=== PATIENT | female | born 1950 | race African-American/Black ===

== ENCOUNTER → 2017-08-01 | Outpatient (CLI) | payer MEDICARE, MEDICAID ==
[~2017-08-01] MED LIST: CINA60 PO; HYDR-3511 PO; REN800 PO; [UNRECOGNIZED DRUG - OTHER] PO
== END | disposition home or self-care (01) ==
LOC: MRI 09:25
PROVIDERS: ATTEND Internal Medicine Nephrology
DX: M51.16 Intervertebral disc disorders with radiculopathy, lumbar region (principal); M48.061 Spinal stenosis, lumbar region without neurogenic claudication
CPT/HCPCS: 72148

== ENCOUNTER 2018-06-24 14:55 | Emergency (ER) | payer MEDICARE, MEDICAID ==
[~2018-06-24] VITALS: Ht 157.5 cm; Wt 80.0 kg
[2018-06-24] MEDS ORDERED: ONDANSETRON 4MG ODT PO ONE (18:15)
[2018-06-24] MEDS ORDERED: MORPHINE SULFATE 10 MG/ML CPJ SUBCUT ONE (18:15)
[2018-06-24 22:08] VITALS: BP 136/64
== END 2018-06-24 22:05 | disposition home or self-care (01) ==
LOC: ER 14:55
DX: M48.54XA Collapsed vertebra, not elsewhere classified, thoracic region, initial encounter for fracture (principal); K56.7 Ileus, unspecified; G89.29 Other chronic pain; I12.0 Hypertensive chronic kidney disease with stage 5 chronic kidney disease or end stage renal disease; N18.6 End stage renal disease; Z99.2 Dependence on renal dialysis; Z98.84 Bariatric surgery status
CPT/HCPCS: 74176; 96372; 99284; J2270; Q0162

== ENCOUNTER 2018-08-26 18:30 | Emergency (ER) | payer MEDICARE, MEDICAID ==
[~2018-08-26] VITALS: Ht 160 cm; Wt 70.0 kg
[2018-08-26] MEDS ORDERED: MORPHINE SULFATE 4 MG/ML CPJ (NOT FOR IM USE) IV STA (22:33)
[2018-08-26] MEDS ORDERED: ONDANSETRON HCL 4MG/2ML INJ IV STA (22:33)
[2018-08-26 23:26] LABS: BASOPHILS % 1.4 % (0.0-2.0); EOSINOPHILS % 5.1 % (0.0-5.0); HEMATOCRIT. 32.6 % (36.0-48.0); HEMOGLOBIN. 10.7 g/dL (12.0-16.0); MEAN CORPUSCULAR HEMOGLOBIN 29.1 pg (28.0-32.0); MEAN CORPUSCULAR VOLUME 88.6 fL (81.0-99.0); MEAN PLATELET VOLUME 7.1 fl (7.4-10.4); NEUTROPHILS % 61.5 % (40.0-76.0); PLATELET 160 x1000/uL (130-400); RED BLOOD CELL COUNT 3.68 mill/uL (4.2-5.4); RED CELL DISTRIBUTION WIDTH 18.1 % (11.6-14.6)
[2018-08-26 23:31] LABS: CHLORIDE 89 mEq/L (98-107)
[2018-08-26 23:35] LABS: INR 1.1; PARTIAL THROMBOPLASTIN TIME 30.8 sec (23.4-31.0); PROTHROMBIN TIME 10.6 sec (9.1-11.1)
[2018-08-27 00:54] VITALS: BP 124/53
== END 2018-08-27 01:41 | disposition home or self-care (01) ==
LOC: ER 18:30
DX: M54.5 Low back pain (principal); N18.6 End stage renal disease; Z99.2 Dependence on renal dialysis; Z98.890 Other specified postprocedural states; Z79.899 Other long term (current) drug therapy; W06.XXXA Fall from bed, initial encounter; Y93.89 Activity, other specified; Y92.89 Other specified places as the place of occurrence of the external cause; Y99.8 Other external cause status
CPT/HCPCS: 36415; 71045; 72100; 80053; 85025; 85610; 85730; 93005; 96374; 96375; 99284; J2270; J2405

== ENCOUNTER 2018-08-29 14:19 | Inpatient (IN) | payer MEDICARE, MEDICAID ==
[~2018-08-29] VITALS: Ht 160 cm; Wt 74.1 kg
[2018-08-29] MEDS ORDERED: MORPHINE SULFATE 4 MG/ML CPJ (NOT FOR IM USE) IV STA (14:35)
[2018-08-29 15:39] LABS: BASOPHILS % 0.8 % (0.0-2.0); EOSINOPHILS % 6.5 % (0.0-5.0); HEMATOCRIT. 32.6 % (36.0-48.0); HEMOGLOBIN. 10.7 g/dL (12.0-16.0); MEAN CORPUSCULAR HEMOGLOBIN 29.3 pg (28.0-32.0); MEAN CORPUSCULAR VOLUME 89.2 fL (81.0-99.0); MEAN PLATELET VOLUME 7.7 fl (7.4-10.4); MONOCYTES % 9.9 % (2.0-8.0); NEUTROPHILS % 69.8 % (40.0-76.0); PLATELET 186 x1000/uL (130-400); RED BLOOD CELL COUNT 3.65 mill/uL (4.2-5.4); RED CELL DISTRIBUTION WIDTH 18.2 % (11.6-14.6)
[2018-08-29 15:44] LABS: CHLORIDE 87 mEq/L (98-107)
[2018-08-29 15:45] LABS: PROTHROMBIN TIME 10.1 sec (9.1-11.1)
[2018-08-29] MEDS ORDERED: ALBUTEROL (0.083%) 2.5MG/3ML NEB HHN SCH (16:30)
[2018-08-29] MEDS ORDERED: INSULIN REGULAR (HUMULIN R) 300UNITS/3ML IV ONE (16:30)
[2018-08-29] MEDS ORDERED: DEXTROSE 50% WATER 50ML SYRINGE IV ONE (16:30)
[2018-08-29] MEDS ORDERED: SODIUM BICARBONATE 8.4% 1 MEQ/ML 50ML SYR IV ONE (16:30)
[2018-08-29] MEDS ORDERED: ACETAMINOPHEN 325MG TABLET PO PRN (22:30)
[2018-08-29] MEDS ORDERED: ONDANSETRON HCL 4MG/2ML INJ IV PRN (22:30)
[2018-08-29] MEDS ORDERED: IPRATROPIUM/ALBUTEROL 0.5-3(2.5)MG/3ML NEB INH PRN (22:30)
[2018-08-29] MEDS ORDERED: MAGNESIUM/ALUMINUM HYDROXIDE/SIMETHICONE 30ML UDC PO PRN (22:30)
[2018-08-29] MEDS ORDERED: LORAZEPAM 2MG/ML CPJ IV PRN (22:30)
[2018-08-29] MEDS ORDERED: DOCUSATE SODIUM 100MG CAPSULE PO PRN (22:30)
[2018-08-29] MEDS ORDERED: MORPHINE SULFATE 4 MG/ML CPJ (NOT FOR IM USE) IV PRN (22:30)
[2018-08-29] MEDS ORDERED: CLONIDINE 0.1MG TABLET PO PRN (22:30)
[2018-08-29] MEDS ORDERED: NA PHOS,M-B/NA PHOS,DI-BA ENEMA 118ML PR PRN (22:30)
[2018-08-30] VITALS (7 sets, daily range): BP systolic 114–148; BP diastolic 39–69
[2018-08-30 08:34] LABS: EOSINOPHILS % 3.1 % (0.0-5.0); HEMATOCRIT. 28.8 % (36.0-48.0); HEMOGLOBIN. 9.4 g/dL (12.0-16.0); LYMPHOCYTES % 10.8 % (20.0-50.0); MEAN CORPUSCULAR HEMOGLOBIN 28.8 pg (28.0-32.0); MEAN CORPUSCULAR VOLUME 88.3 fL (81.0-99.0); MEAN PLATELET VOLUME 7.6 fl (7.4-10.4); MONOCYTES % 10.8 % (2.0-8.0); NEUTROPHILS % 74.3 % (40.0-76.0); PLATELET 173 x1000/uL (130-400); RED BLOOD CELL COUNT 3.26 mill/uL (4.2-5.4); RED CELL DISTRIBUTION WIDTH 18.2 % (11.6-14.6)
[2018-08-30 09:04] LABS: CHLORIDE 89 mEq/L (98-107)
[2018-08-30 09:16] LABS: HDL CHOLESTEROL 73 mg/dL (40-59); LDL CHOLESTEROL 102 mg/dL (5-100)
[2018-08-30 09:17] LABS: T4 FREE 0.65 ng/dL (0.76-1.46)
[2018-08-30] MEDS: ENOXAPARIN 30MG/0.3ML SYR SUBCUT SCH (12:08)
[2018-08-30] MEDS: ASPIRIN 81MG EC TABLET PO SCH (12:09)
[2018-08-30] MEDS: HYDROCODONE/ACETAMINOPHEN 10/325MG TABLET PO PRN (12:09)
[2018-08-30] MEDS ORDERED: NORT25CA MT (12:18)
[2018-08-30] MEDS ORDERED: NORCO PO (12:18)
[2018-08-30] MEDS ORDERED: CYCL5TAB PO (12:18)
[2018-08-30] MEDS ORDERED: DEXTROSE 50% WATER 50ML SYRINGE IV SCH (13:45)
[2018-08-30] MEDS ORDERED: INSULIN REGULAR (HUMULIN R) 300UNITS/3ML IV SCH (13:45)
[2018-08-30] MEDS ORDERED: SODIUM BICARBONATE 8.4% 1 MEQ/ML 50ML SYR IV SCH (13:45)
[2018-08-30] MEDS ORDERED: CALCIUM CHLORIDE 1,000 MG in DEXT 5% WATER 100 ML IV SCH (15:00)
[2018-08-30] MEDS ORDERED: DEXTROSE 50% WATER 50ML SYRINGE IV PRN (15:45)
[2018-08-30 17:06] LABS: CREATINE KINASE MB FRACTION 1.1 ng/mL (0.5-3.6); T4 FREE 0.59 ng/dL (0.76-1.46)
[2018-08-30] MEDS: BLOOD SUGAR DIAGNOSTIC STRIP TEST SCH ×2 (17:20→20:14)
[2018-08-31] VITALS: BP 140/67
[2018-08-31 00:06] LABS: CREATINE KINASE 45 IU/L (26-192)
[2018-08-31 00:07] LABS: CREATINE KINASE MB FRACTION < 1.0 ng/mL (0.5-3.6)
[2018-08-31 04:41] VITALS: BP 123/56
[2018-08-31 06:35] LABS: HEMATOCRIT. 27.1 % (36.0-48.0); MEAN CORPUSCULAR HEMOGLOBIN 29.1 pg (28.0-32.0); MEAN CORPUSCULAR VOLUME 87.4 fL (81.0-99.0); MEAN PLATELET VOLUME 7.7 fl (7.4-10.4); PLATELET 173 x1000/uL (130-400); RED CELL DISTRIBUTION WIDTH 17.8 % (11.6-14.6)
[2018-08-31] MEDS: BLOOD SUGAR DIAGNOSTIC STRIP TEST SCH ×3 (06:35→17:20)
[2018-08-31 07:02] LABS: CHLORIDE 93 mEq/L (98-107)
[2018-08-31 07:21] LABS: CREATINE KINASE 45 IU/L (26-192)
[2018-08-31 07:23] LABS: CREATINE KINASE MB FRACTION < 1.0 ng/mL (0.5-3.6)
[2018-08-31 08:00] VITALS: BP 110/48
[2018-08-31] MEDS: HYDROCODONE/ACETAMINOPHEN 10/325MG TABLET PO PRN ×3 (08:19→18:56)
[2018-08-31] MEDS: ASPIRIN 81MG EC TABLET PO SCH (09:35)
[2018-08-31] MEDS: FOLIC ACID/VITAMIN B COMP W-C TABLET PO SCH (09:35)
[2018-08-31] MEDS: CALCIUM ACETATE 667MG CAPSULE PO SCH ×3 (09:35→18:47)
[2018-08-31] MEDS: ENOXAPARIN 30MG/0.3ML SYR SUBCUT SCH (09:36)
[2018-08-31 10:44] LABS: PLATELET ESTIMATE NORMAL
[2018-08-31 12:00] VITALS: BP 135/60
[2018-08-31 16:00] VITALS: BP 132/72
[2018-08-31 20:00] VITALS: BP 115/52
[2018-08-31] MEDS ORDERED: EPOETIN ALFA 10000UNITS/ML VIAL SUBCUT SCH (21:00)
[2018-09-01] VITALS: BP 113/56
[2018-09-01 04:00] VITALS: BP 118/50
[2018-09-01 06:14] LABS: HEMATOCRIT. 26.7 % (36.0-48.0); HEMOGLOBIN. 8.9 g/dL (12.0-16.0); MEAN CORPUSCULAR HEMOGLOBIN 29.8 pg (28.0-32.0); MEAN CORPUSCULAR VOLUME 89.3 fL (81.0-99.0); MEAN PLATELET VOLUME 7.8 fl (7.4-10.4); PLATELET 170 x1000/uL (130-400); RED BLOOD CELL COUNT 2.99 mill/uL (4.2-5.4)
[2018-09-01] MEDS: BLOOD SUGAR DIAGNOSTIC STRIP TEST SCH ×2 (07:20→12:20)
[2018-09-01 08:00] VITALS: BP 118/48
[2018-09-01 08:42] VITALS: BP 118/48
[2018-09-01] MEDS: HYDROCODONE/ACETAMINOPHEN 10/325MG TABLET PO PRN (09:28)
[2018-09-01] MEDS: ENOXAPARIN 30MG/0.3ML SYR SUBCUT SCH (09:28)
[2018-09-01] MEDS: ASPIRIN 81MG EC TABLET PO SCH (09:28)
[2018-09-01] MEDS: FOLIC ACID/VITAMIN B COMP W-C TABLET PO SCH (09:28)
[2018-09-01] MEDS: CALCIUM ACETATE 667MG CAPSULE PO SCH ×2 (09:29→12:51)
[2018-09-01 12:00] VITALS: BP 134/62
[2018-09-01 12:43] VITALS: BP 134/62
[2018-09-01 13:11] LABS: PLATELET ESTIMATE NORMAL
== END 2018-09-01 15:00 | disposition home health service (06) | DRG 640 ==
LOC: ER 14:19 → 6WST 17:11 → EDBEDREQ 17:21 → EDBEDREQTM 17:21 → ENRESERV 21:20
PROVIDERS: ADMIT Internal Medicine; ATTEND Internal Medicine
PROC: 5A1D70Z Performance of Urinary Filtration, Intermittent, Less than 6 Hours Per Day (ICD-10-PCS; principal; 2018-08-30)
PROC: 5A1D70Z Performance of Urinary Filtration, Intermittent, Less than 6 Hours Per Day (ICD-10-PCS; 2018-08-31)
DX: E87.5 Hyperkalemia (principal); L89.153 Pressure ulcer of sacral region, stage 3; J96.00 Acute respiratory failure, unspecified whether with hypoxia or hypercapnia; N18.6 End stage renal disease; E46 Unspecified protein-calorie malnutrition; I12.0 Hypertensive chronic kidney disease with stage 5 chronic kidney disease or end stage renal disease; M48.061 Spinal stenosis, lumbar region without neurogenic claudication; E87.2 Acidosis; E87.1 Hypo-osmolality and hyponatremia; E87.70 Fluid overload, unspecified; D64.9 Anemia, unspecified; E78.5 Hyperlipidemia, unspecified; M47.896 Other spondylosis, lumbar region; D72.819 Decreased white blood cell count, unspecified; M46.96 Unspecified inflammatory spondylopathy, lumbar region; M46.90 Unspecified inflammatory spondylopathy, site unspecified; E16.2 Hypoglycemia, unspecified; N25.0 Renal osteodystrophy; W18.30XA Fall on same level, unspecified, initial encounter; Y93.89 Activity, other specified; Y92.89 Other specified places as the place of occurrence of the external cause; Y99.8 Other external cause status; Z99.2 Dependence on renal dialysis; Z98.84 Bariatric surgery status; Z90.710 Acquired absence of both cervix and uterus; Z86.718 Personal history of other venous thrombosis and embolism; Z68.28 Body mass index [BMI] 28.0-28.9, adult; Z79.899 Other long term (current) drug therapy
CPT/HCPCS: 36415; 71045; 72100; 72131; 80048; 80061; 82550; 82553; 82962; 83036; 83880; 84134; 84439; 84443; 84484; 85379; 93005; 93306; 93970; 96374; 96375; 97162; 99284; 99285; J0885; J1650; J1815; J2270; J2405; J3490; J7050; J7060

== ENCOUNTER 2018-09-12 03:21 | Inpatient (IN) | payer MEDICARE, MEDICAID ==
[~2018-09-12] VITALS: Ht 165.1 cm; Wt 67.6 kg
[~2018-09-12 03:21] MED LIST changes: -CINA60 PO; +CYCL5TAB PO; -HYDR-3511 PO; +NORCO PO; +NORT25CA MT; -REN800 PO; -[UNRECOGNIZED DRUG - OTHER] PO
[2018-09-12] MEDS ORDERED: MORPHINE SULFATE 4 MG/ML CPJ (NOT FOR IM USE) IV STA (06:18)
[2018-09-12 06:32] LABS: BASOPHILS % 1.1 % (0.0-2.0); EOSINOPHILS % 6.1 % (0.0-5.0); HEMATOCRIT. 28.2 % (36.0-48.0); HEMOGLOBIN. 9.4 g/dL (12.0-16.0); LYMPHOCYTES % 17.4 % (20.0-50.0); MEAN CORPUSCULAR HEMOGLOBIN 29.4 pg (28.0-32.0); MEAN CORPUSCULAR VOLUME 88.5 fL (81.0-99.0); MONOCYTES % 9.7 % (2.0-8.0); NEUTROPHILS % 65.7 % (40.0-76.0); PLATELET 201 x1000/uL (130-400); RED BLOOD CELL COUNT 3.19 mill/uL (4.2-5.4); RED CELL DISTRIBUTION WIDTH 16.8 % (11.6-14.6)
[2018-09-12 06:37] LABS: CHLORIDE 88 mEq/L (98-107)
[2018-09-12 06:39] LABS: PROTHROMBIN TIME 10.4 sec (9.6-11.0)
[2018-09-12 18:41] VITALS: BP 151/107
[2018-09-12 19:11] VITALS: BP 151/107
[2018-09-12] MEDS ORDERED: SENN8.6T71 MT (19:20)
[2018-09-12 20:00] VITALS: BP 120/59
[2018-09-12] MEDS ORDERED: ACETAMINOPHEN 325MG TABLET PO PRN (21:15)
[2018-09-12] MEDS ORDERED: DIPHENHYDRAMINE 50MG/ML VIAL IV PRN (21:15)
[2018-09-12] MEDS ORDERED: GUAIFENESIN 200MG/10ML SUGAR FREE UDC PO PRN (21:15)
[2018-09-12] MEDS ORDERED: CLONIDINE 0.1MG TABLET PO PRN (21:15)
[2018-09-12] MEDS ORDERED: MAGNESIUM/ALUMINUM HYDROXIDE/SIMETHICONE 30ML UDC PO PRN (21:15)
[2018-09-12] MEDS ORDERED: HYDRALAZINE 20MG/ML VIAL IV PRN (21:15)
[2018-09-12] MEDS ORDERED: ONDANSETRON HCL 4MG/2ML INJ IV PRN (21:15)
[2018-09-12] MEDS ORDERED: IPRATROPIUM/ALBUTEROL 0.5-3(2.5)MG/3ML NEB INH PRN (21:15)
[2018-09-12] MEDS ORDERED: LORAZEPAM 2MG/ML CPJ IV PRN (21:15)
[2018-09-12] MEDS ORDERED: HYDROCODONE/ACETAMINOPHEN 10/325MG TABLET PO PRN (21:17)
[2018-09-12] MEDS: HYDROMORPHONE HCL/PF 2MG/ML CPJ IV PRN (22:17)
[2018-09-12] MEDS: SODIUM CHLORIDE 0.9% INJ 3ML FLUSH IVF SCH (22:18)
[2018-09-13] VITALS (7 sets, daily range): BP systolic 112–150; BP diastolic 47–95
[2018-09-13 02:04] LABS: CREATINE KINASE 49 IU/L (26-192)
[2018-09-13 02:05] LABS: CREATINE KINASE MB FRACTION < 1.0 ng/mL (0.5-3.6)
[2018-09-13 06:16] LABS: BASOPHILS % 1.1 % (0.0-2.0); HEMOGLOBIN. 9.9 g/dL (12.0-16.0); LYMPHOCYTES % 12.9 % (20.0-50.0); MEAN CORPUSCULAR HEMOGLOBIN 29.3 pg (28.0-32.0); MEAN CORPUSCULAR VOLUME 88.7 fL (81.0-99.0); MEAN PLATELET VOLUME 7.6 fl (7.4-10.4); MONOCYTES % 9.1 % (2.0-8.0); NEUTROPHILS % 69.9 % (40.0-76.0); PLATELET 198 x1000/uL (130-400); RED BLOOD CELL COUNT 3.38 mill/uL (4.2-5.4); RED CELL DISTRIBUTION WIDTH 16.7 % (11.6-14.6)
[2018-09-13 06:41] LABS: CHLORIDE 87 mEq/L (98-107)
[2018-09-13] MEDS: SODIUM CHLORIDE 0.9% INJ 3ML FLUSH IVF SCH ×3 (06:50→22:38)
[2018-09-13 06:55] LABS: CREATINE KINASE 47 IU/L (26-192)
[2018-09-13 06:58] LABS: CREATINE KINASE MB FRACTION < 1.0 ng/mL (0.5-3.6)
[2018-09-13] MEDS: ASPIRIN 81MG EC TABLET PO SCH (10:22)
[2018-09-13] MEDS: ENOXAPARIN 30MG/0.3ML SYR SUBCUT SCH (10:23)
[2018-09-13] MEDS: HYDROMORPHONE HCL/PF 2MG/ML CPJ IV PRN ×2 (11:35→23:42)
[2018-09-13] MEDS ORDERED: HYDR-4009 PO (19:35)
[2018-09-14 04:00] VITALS: BP 113/47
[2018-09-14 05:59] LABS: BASOPHILS % 1.2 % (0.0-2.0); EOSINOPHILS % 7.7 % (0.0-5.0); HEMATOCRIT. 26.5 % (36.0-48.0); HEMOGLOBIN. 8.9 g/dL (12.0-16.0); MEAN CORPUSCULAR HEMOGLOBIN 29.5 pg (28.0-32.0); MEAN CORPUSCULAR VOLUME 88.4 fL (81.0-99.0); MEAN PLATELET VOLUME 7.5 fl (7.4-10.4); NEUTROPHILS % 58.1 % (40.0-76.0); PLATELET 190 x1000/uL (130-400); RED CELL DISTRIBUTION WIDTH 16.8 % (11.6-14.6)
[2018-09-14] MEDS: SODIUM CHLORIDE 0.9% INJ 3ML FLUSH IVF SCH ×2 (07:10→20:55)
[2018-09-14 08:00] VITALS: BP 98/40
[2018-09-14] MEDS: ASPIRIN 81MG EC TABLET PO SCH (09:15)
[2018-09-14] MEDS: ENOXAPARIN 30MG/0.3ML SYR SUBCUT SCH (09:15)
[2018-09-14 10:05] LABS: TOTAL IRON BINDING CAPACITY 123 ug/dL (250-450)
[2018-09-14 12:08] VITALS: BP 122/78
[2018-09-14] MEDS: DOCUSATE SODIUM 100MG CAPSULE PO PRN (12:54)
[2018-09-14 16:00] VITALS: BP 105/51
[2018-09-14 20:00] VITALS: BP 114/58
[2018-09-14] MEDS: EPOETIN ALFA 10000UNITS/ML VIAL SUBCUT SCH (20:54)
[2018-09-15] VITALS: BP 136/57
[2018-09-15 04:00] VITALS: BP 117/85
[2018-09-15] MEDS: SODIUM CHLORIDE 0.9% INJ 3ML FLUSH IVF SCH ×3 (06:03→22:29)
[2018-09-15 07:44] LABS: BASOPHILS % 1.4 % (0.0-2.0); EOSINOPHILS % 8.7 % (0.0-5.0); HEMATOCRIT. 28.9 % (36.0-48.0); HEMOGLOBIN. 9.2 g/dL (12.0-16.0); LYMPHOCYTES % 22.3 % (20.0-50.0); MEAN CORPUSCULAR HEMOGLOBIN 28.7 pg (28.0-32.0); MEAN CORPUSCULAR VOLUME 89.8 fL (81.0-99.0); MEAN PLATELET VOLUME 7.5 fl (7.4-10.4); NEUTROPHILS % 54.6 % (40.0-76.0); PLATELET 197 x1000/uL (130-400); RED BLOOD CELL COUNT 3.22 mill/uL (4.2-5.4); RED CELL DISTRIBUTION WIDTH 17.1 % (11.6-14.6)
[2018-09-15 08:00] VITALS: BP 130/51
[2018-09-15] MEDS: ASPIRIN 81MG EC TABLET PO SCH (09:06)
[2018-09-15] MEDS: ENOXAPARIN 30MG/0.3ML SYR SUBCUT SCH (09:07)
[2018-09-15] MEDS: HYDROMORPHONE HCL/PF 2MG/ML CPJ IV PRN ×2 (09:38→22:26)
[2018-09-15 12:41] VITALS: BP 133/63
[2018-09-15 15:36] VITALS: BP 122/53
[2018-09-15 20:00] VITALS: BP 130/55
[2018-09-16] VITALS: BP 128/59
[2018-09-16 04:00] VITALS: BP 121/51
[2018-09-16 05:42] LABS: EOSINOPHILS % 11.7 % (0.0-5.0); HEMATOCRIT. 29.9 % (36.0-48.0); HEMOGLOBIN. 9.8 g/dL (12.0-16.0); LYMPHOCYTES % 32.2 % (20.0-50.0); MEAN CORPUSCULAR HEMOGLOBIN 29.3 pg (28.0-32.0); MEAN CORPUSCULAR VOLUME 89.4 fL (81.0-99.0); MEAN PLATELET VOLUME 7.6 fl (7.4-10.4); MONOCYTES % 12.6 % (2.0-8.0); NEUTROPHILS % 42.5 % (40.0-76.0); PLATELET 197 x1000/uL (130-400); RED BLOOD CELL COUNT 3.35 mill/uL (4.2-5.4); RED CELL DISTRIBUTION WIDTH 16.9 % (11.6-14.6)
[2018-09-16] MEDS: SODIUM CHLORIDE 0.9% INJ 3ML FLUSH IVF SCH ×3 (06:05→21:54)
[2018-09-16 08:00] VITALS: BP 125/56
[2018-09-16] MEDS: ENOXAPARIN 30MG/0.3ML SYR SUBCUT SCH (09:29)
[2018-09-16] MEDS: ASPIRIN 81MG EC TABLET PO SCH (09:29)
[2018-09-16] MEDS: HYDROMORPHONE HCL/PF 2MG/ML CPJ IV PRN ×2 (09:33→21:29)
[2018-09-16 12:00] VITALS: BP 134/49
[2018-09-16 16:00] VITALS: BP 146/61
[2018-09-16 20:00] VITALS: BP 129/52
[2018-09-17] VITALS: BP 128/54
[2018-09-17 04:00] VITALS: BP 130/56
[2018-09-17] MEDS: SODIUM CHLORIDE 0.9% INJ 3ML FLUSH IVF SCH ×3 (04:34→21:00)
[2018-09-17 06:57] LABS: BASOPHILS % 1.2 % (0.0-2.0); EOSINOPHILS % 10.7 % (0.0-5.0); HEMATOCRIT. 27.3 % (36.0-48.0); HEMOGLOBIN. 9.1 g/dL (12.0-16.0); LYMPHOCYTES % 23.8 % (20.0-50.0); MEAN CORPUSCULAR HEMOGLOBIN 29.3 pg (28.0-32.0); MEAN CORPUSCULAR VOLUME 88.3 fL (81.0-99.0); MEAN PLATELET VOLUME 7.3 fl (7.4-10.4); MONOCYTES % 11.8 % (2.0-8.0); NEUTROPHILS % 52.5 % (40.0-76.0); PLATELET 232 x1000/uL (130-400); RED BLOOD CELL COUNT 3.09 mill/uL (4.2-5.4); RED CELL DISTRIBUTION WIDTH 16.7 % (11.6-14.6)
[2018-09-17 08:00] VITALS: BP 135/59
[2018-09-17] MEDS: DOCUSATE SODIUM 100MG CAPSULE PO PRN ×2 (09:52→21:36)
[2018-09-17] MEDS: ASPIRIN 81MG EC TABLET PO SCH (09:52)
[2018-09-17] MEDS: HYDROMORPHONE HCL/PF 2MG/ML CPJ IV PRN ×2 (09:53→21:07)
[2018-09-17] MEDS: ENOXAPARIN 30MG/0.3ML SYR SUBCUT SCH (09:54)
[2018-09-17 12:00] VITALS: BP 135/63
[2018-09-17 16:00] VITALS: BP 143/66
[2018-09-17 20:00] VITALS: BP 137/66
[2018-09-17] MEDS: EPOETIN ALFA 10000UNITS/ML VIAL SUBCUT SCH (21:15)
[2018-09-18] VITALS: BP 130/58
[2018-09-18 04:00] VITALS: BP 119/52
[2018-09-18] MEDS: SODIUM CHLORIDE 0.9% INJ 3ML FLUSH IVF SCH ×3 (06:47→22:08)
[2018-09-18 08:00] VITALS: BP 143/58
[2018-09-18] MEDS: ASPIRIN 81MG EC TABLET PO SCH (09:13)
[2018-09-18] MEDS: ENOXAPARIN 30MG/0.3ML SYR SUBCUT SCH (09:13)
[2018-09-18] MEDS: HYDROMORPHONE HCL/PF 2MG/ML CPJ IV PRN ×3 (10:19→22:18)
[2018-09-18 12:00] VITALS: BP 129/43
[2018-09-18 16:00] VITALS: BP 128/67
[2018-09-18 20:00] VITALS: BP 139/61
[2018-09-19] VITALS: BP 124/58
[2018-09-19 04:00] VITALS: BP 125/52
[2018-09-19] MEDS: SODIUM CHLORIDE 0.9% INJ 3ML FLUSH IVF SCH (05:41)
[2018-09-19 07:03] LABS: HEMATOCRIT. 30.9 % (36.0-48.0); HEMOGLOBIN. 9.9 g/dL (12.0-16.0); MEAN CORPUSCULAR HEMOGLOBIN 28.2 pg (28.0-32.0); MEAN CORPUSCULAR VOLUME 88.2 fL (81.0-99.0); MEAN PLATELET VOLUME 7.7 fl (7.4-10.4); PLATELET 209 x1000/uL (130-400); RED CELL DISTRIBUTION WIDTH 16.7 % (11.6-14.6)
[2018-09-19 08:00] VITALS: BP 127/52
[2018-09-19] MEDS: ASPIRIN 81MG EC TABLET PO SCH (09:00)
[2018-09-19] MEDS: ENOXAPARIN 30MG/0.3ML SYR SUBCUT SCH (09:00)
[2018-09-19] MEDS: HYDROMORPHONE HCL/PF 2MG/ML CPJ IV PRN (09:14)
[2018-09-19 09:22] LABS: PLATELET ESTIMATE NORMAL
[2018-09-19 12:00] VITALS: BP 141/68
[2018-09-19 13:15] VITALS: BP 141/68
[2018-09-19 16:00] VITALS: BP 151/61
[2018-09-19] MEDS: DOCUSATE SODIUM 100MG CAPSULE PO PRN (16:21)
== END 2018-09-19 17:43 | disposition home or self-care (01) | DRG 542 ==
LOC: ER 03:21 → 7WST 08:13 → EDBEDREQ 08:16 → EDBEDREQTM 08:16 → ENRESERV 14:54
PROVIDERS: ADMIT Internal Medicine; ATTEND Internal Medicine
PROC: 5A1D70Z Performance of Urinary Filtration, Intermittent, Less than 6 Hours Per Day (ICD-10-PCS; principal; 2018-09-13)
PROC: 5A1D70Z Performance of Urinary Filtration, Intermittent, Less than 6 Hours Per Day (ICD-10-PCS; 2018-09-17)
PROC: 5A1D70Z Performance of Urinary Filtration, Intermittent, Less than 6 Hours Per Day (ICD-10-PCS; 2018-09-19)
DX: M48.54XA Collapsed vertebra, not elsewhere classified, thoracic region, initial encounter for fracture (principal); L89.153 Pressure ulcer of sacral region, stage 3; N18.6 End stage renal disease; E87.1 Hypo-osmolality and hyponatremia; I12.0 Hypertensive chronic kidney disease with stage 5 chronic kidney disease or end stage renal disease; M48.061 Spinal stenosis, lumbar region without neurogenic claudication; G89.29 Other chronic pain; Z99.2 Dependence on renal dialysis; D64.9 Anemia, unspecified; E11.22 Type 2 diabetes mellitus with diabetic chronic kidney disease; R29.6 Repeated falls; E87.5 Hyperkalemia; M48.02 Spinal stenosis, cervical region; M47.9 Spondylosis, unspecified; N25.0 Renal osteodystrophy; Z91.81 History of falling; Z98.84 Bariatric surgery status; Z98.891 History of uterine scar from previous surgery; Z79.84 Long term (current) use of oral hypoglycemic drugs
CPT/HCPCS: 36415; 72128; 72131; 72141; 72146; 72148; 80048; 82550; 82553; 83540; 83550; 84134; 84484; 93005; 96374; 97162; 99285; A6261; J0885; J1170; J1650; J2060; J2270

== ENCOUNTER 2019-02-12 18:57 | Emergency (ER) | payer MEDICARE, MEDICAID ==
[~2019-02-12] VITALS: Ht 160 cm; Wt 63.0 kg
[~2019-02-12 18:57] MED LIST changes: -NORCO PO; +SENN8.6T71 MT
[2019-02-12] MEDS ORDERED: MORPHINE SULFATE 4 MG/ML CPJ (NOT FOR IM USE) IV STA (20:06)
[2019-02-12] MEDS ORDERED: SODIUM CHLORIDE 0.9% 1,000 ML IV ONE (20:06)
[2019-02-12] MEDS ORDERED: ONDANSETRON HCL 4MG/2ML INJ IV STA (20:06)
[2019-02-12] MEDS ORDERED: FAMOTIDINE 20MG/2ML VIAL IV ONE (20:15)
[2019-02-12 20:27] LABS: BASOPHILS % 0.7 % (0.0-2.0); EOSINOPHILS % 3.8 % (0.0-5.0); HEMATOCRIT. 27.1 % (36.0-48.0); HEMOGLOBIN. 8.9 g/dL (12.0-16.0); LYMPHOCYTES % 8.4 % (20.0-50.0); MEAN CORPUSCULAR HEMOGLOBIN 29.8 pg (28.0-32.0); MEAN CORPUSCULAR VOLUME 90.7 fL (81.0-99.0); MEAN PLATELET VOLUME 8.2 fl (7.4-10.4); MONOCYTES % 7.6 % (2.0-8.0); NEUTROPHILS % 79.5 % (40.0-76.0); PLATELET 132 x1000/uL (130-400); RED BLOOD CELL COUNT 2.98 mill/uL (4.2-5.4); RED CELL DISTRIBUTION WIDTH 20.6 % (11.6-14.6)
[2019-02-12 20:31] LABS: CHLORIDE 96 mEq/L (98-107)
[2019-02-12 20:35] LABS: ETHANOL BLOOD < 10 mg/dL
[2019-02-12] MEDS ORDERED: SORBITOL 70% SOLN 30ML PO ONE (22:00)
[2019-02-12] MEDS ORDERED: NA PHOS,M-B/NA PHOS,DI-BA ENEMA 118ML PR ONE (22:00)
[2019-02-13 01:25] VITALS: BP 119/84
== END 2019-02-13 02:55 | disposition home or self-care (01) ==
LOC: ER 18:57 → CANBEDREQ 02-13 03:52
DX: K59.00 Constipation, unspecified (principal); R10.31 Right lower quadrant pain; R10.32 Left lower quadrant pain; Z90.49 Acquired absence of other specified parts of digestive tract
CPT/HCPCS: 36415; 71045; 74176; 80053; 80320; 83690; 83880; 84484; 85025; 93005; 96374; 96375; 99284; J2270; J2405; J3490; J7030; G0480

== ENCOUNTER 2019-03-20 15:20 | Inpatient (IN) | payer MEDICARE, MEDICAID ==
[~2019-03-20] VITALS: Ht 160 cm; Wt 59.0 kg
[2019-03-20 17:00] VITALS: BP 132/76
[2019-03-20] MEDS ORDERED: SODIUM CHLORIDE 0.45% 1,000 ML IV SCH (17:25)
[2019-03-20] MEDS ORDERED: DOCUSATE SODIUM 100MG CAPSULE PO PRN (17:30)
[2019-03-20] MEDS ORDERED: GUAIFENESIN 200MG/10ML SUGAR FREE UDC PO PRN (17:30)
[2019-03-20] MEDS ORDERED: ACETAMINOPHEN 325MG TABLET PO PRN (17:30)
[2019-03-20] MEDS ORDERED: IPRATROPIUM/ALBUTEROL 0.5-3(2.5)MG/3ML NEB HHN PRN (17:30)
[2019-03-20] MEDS ORDERED: DIPHENHYDRAMINE 50MG/ML VIAL IV PRN (17:30)
[2019-03-20] MEDS ORDERED: LORAZEPAM 2MG/ML CPJ IV PRN (17:30)
[2019-03-20] MEDS ORDERED: MAGNESIUM/ALUMINUM HYDROXIDE/SIMETHICONE 30ML UDC PO PRN (17:30)
[2019-03-20] MEDS ORDERED: ONDANSETRON HCL 4MG/2ML INJ IV PRN (17:30)
[2019-03-20] MEDS: HYDROCODONE/ACETAMINOPHEN 10/325MG TABLET PO PRN (19:37)
[2019-03-20 20:00] VITALS: BP 157/67
[2019-03-20] MEDS ORDERED: OXYC-100 PO (20:19)
[2019-03-20] MEDS: SODIUM CHLORIDE 0.9% INJ 3ML FLUSH IVF SCH (22:00)
[2019-03-21] MEDS: HYDROCODONE/ACETAMINOPHEN 10/325MG TABLET PO PRN (00:28)
[2019-03-21] MEDS: HYDROMORPHONE HCL/PF 2MG/ML CPJ IV PRN ×6 (01:06→20:17)
[2019-03-21 04:00] VITALS: BP 133/60
[2019-03-21] MEDS: SODIUM CHLORIDE 0.9% INJ 3ML FLUSH IVF SCH (05:13)
[2019-03-21 07:47] LABS: HEMATOCRIT. 32.1 % (36.0-48.0); HEMOGLOBIN. 10.3 g/dL (12.0-16.0); MEAN CORPUSCULAR HEMOGLOBIN 30.2 pg (28.0-32.0); MEAN CORPUSCULAR VOLUME 93.8 fL (81.0-99.0); MEAN PLATELET VOLUME 8.7 fl (7.4-10.4); PLATELET 110 x1000/uL (130-400); RED BLOOD CELL COUNT 3.42 mill/uL (4.2-5.4); RED CELL DISTRIBUTION WIDTH 16.8 % (11.6-14.6)
[2019-03-21 08:00] VITALS: BP 152/77
[2019-03-21] MEDS: ASPIRIN 81MG EC TABLET PO SCH (08:45)
[2019-03-21 09:05] LABS: CHLORIDE 97 mEq/L (98-107)
[2019-03-21 10:13] LABS: PLATELET ESTIMATE DECREASED
[2019-03-21 12:00] VITALS: BP 142/68
[2019-03-21] MEDS ORDERED: DIATR MEGLU/DIATRIZOATE SOLN 30ML PO SCH (14:45)
[2019-03-21 15:56] VITALS: BP 156/66
[2019-03-21 15:56] LABS: PROTHROMBIN TIME 10.3 sec (9.6-11.0)
[2019-03-21] MEDS: ENOXAPARIN 30MG/0.3ML SYR SUBCUT SCH (16:55)
[2019-03-21 20:00] VITALS: BP 146/65
[2019-03-21] MEDS: OMEPRAZOLE 20MG CAPSULE EXTENDED RELEASE PO SCH (20:24)
[2019-03-21] MEDS: LACTULOSE 20G/30ML UDC PO SCH (20:24)
[2019-03-21] MEDS: DOCUSATE SODIUM 250MG CAPSULE PO SCH (20:24)
[2019-03-21] MEDS: SENNOSIDES 8.6MG TABLET PO SCH (20:24)
[2019-03-22] VITALS: BP 152/72
[2019-03-22] MEDS: HYDROMORPHONE HCL/PF 2MG/ML CPJ IV PRN ×4 (00:31→21:48)
[2019-03-22 04:00] VITALS: BP 142/63
[2019-03-22] MEDS: OMEPRAZOLE 20MG CAPSULE EXTENDED RELEASE PO SCH ×2 (06:43→21:34)
[2019-03-22] MEDS: SODIUM CHLORIDE 0.9% INJ 3ML FLUSH IVF SCH (06:50)
[2019-03-22 08:03] LABS: BASOPHILS % 1.3 % (0.0-2.0); HEMATOCRIT. 31.5 % (36.0-48.0); HEMOGLOBIN. 10.2 g/dL (12.0-16.0); MEAN CORPUSCULAR HEMOGLOBIN 29.9 pg (28.0-32.0); MEAN CORPUSCULAR VOLUME 92.4 fL (81.0-99.0); MEAN PLATELET VOLUME 8.6 fl (7.4-10.4); MONOCYTES % 9.4 % (2.0-8.0); NEUTROPHILS % 47.3 % (40.0-76.0); PLATELET 140 x1000/uL (130-400); RED BLOOD CELL COUNT 3.41 mill/uL (4.2-5.4); RED CELL DISTRIBUTION WIDTH 16.5 % (11.6-14.6)
[2019-03-22] MEDS: ASPIRIN 81MG EC TABLET PO SCH (10:31)
[2019-03-22] MEDS: DOCUSATE SODIUM 250MG CAPSULE PO SCH ×2 (10:31→17:22)
[2019-03-22 16:00] VITALS: BP 144/62
[2019-03-22] MEDS: ENOXAPARIN 30MG/0.3ML SYR SUBCUT SCH (17:22)
[2019-03-22 20:00] VITALS: BP 142/69
[2019-03-22] MEDS: SENNOSIDES 8.6MG TABLET PO SCH (21:34)
[2019-03-22] MEDS: LACTULOSE 20G/30ML UDC PO SCH (21:35)
[2019-03-22] MEDS: CLONIDINE 0.1MG TABLET PO PRN (23:31)
[2019-03-23] VITALS: BP 183/74
[2019-03-23] MEDS: HYDROMORPHONE HCL/PF 2MG/ML CPJ IV PRN ×5 (02:14→20:29)
[2019-03-23] MEDS: SODIUM CHLORIDE 0.9% INJ 3ML FLUSH IVF SCH ×2 (02:27→06:09)
[2019-03-23] MEDS: HYDROCODONE/ACETAMINOPHEN 10/325MG TABLET PO PRN (03:40)
[2019-03-23 04:00] VITALS: BP 134/65
[2019-03-23 07:48] LABS: HEMATOCRIT. 29.8 % (36.0-48.0); HEMOGLOBIN. 9.7 g/dL (12.0-16.0); MEAN CORPUSCULAR HEMOGLOBIN 30.2 pg (28.0-32.0); MEAN CORPUSCULAR VOLUME 92.5 fL (81.0-99.0); PLATELET 122 x1000/uL (130-400); RED BLOOD CELL COUNT 3.22 mill/uL (4.2-5.4); RED CELL DISTRIBUTION WIDTH 16.1 % (11.6-14.6)
[2019-03-23] MEDS: OMEPRAZOLE 20MG CAPSULE EXTENDED RELEASE PO SCH ×2 (09:47→20:28)
[2019-03-23] MEDS: ASCORBIC ACID 250 MG TABLET PO SCH (09:47)
[2019-03-23] MEDS: DOCUSATE SODIUM 250MG CAPSULE PO SCH ×2 (09:47→16:37)
[2019-03-23] MEDS: ASPIRIN 81MG EC TABLET PO SCH (09:47)
[2019-03-23] MEDS: ZINC SULFATE 220 MG ( 50 ) CAPSULE PO SCH (09:48)
[2019-03-23] MEDS ORDERED: LIDOCAINE HCL 1% 20ML VIAL (Pyxis) INJ ONE (11:03)
[2019-03-23 11:45] LABS: PLATELET ESTIMATE NORMAL
[2019-03-23 12:00] VITALS: BP 134/59
[2019-03-23 16:00] VITALS: BP 150/70
[2019-03-23] MEDS: ENOXAPARIN 30MG/0.3ML SYR SUBCUT SCH (16:00)
[2019-03-23 20:00] VITALS: BP 191/77
[2019-03-23] MEDS: LACTULOSE 20G/30ML UDC PO SCH (20:27)
[2019-03-23] MEDS: SENNOSIDES 8.6MG TABLET PO SCH (20:28)
[2019-03-24] VITALS: BP 107/62
[2019-03-24] MEDS: HYDROMORPHONE HCL/PF 2MG/ML CPJ IV PRN ×4 (02:19→21:50)
[2019-03-24 04:00] VITALS: BP 130/39
[2019-03-24] MEDS: SODIUM CHLORIDE 0.9% INJ 3ML FLUSH IVF SCH ×3 (06:05→21:43)
[2019-03-24 06:07] LABS: HEMATOCRIT. 27.9 % (36.0-48.0); HEMOGLOBIN. 9.2 g/dL (12.0-16.0); MEAN CORPUSCULAR HEMOGLOBIN 30.2 pg (28.0-32.0); MEAN CORPUSCULAR VOLUME 91.7 fL (81.0-99.0); MEAN PLATELET VOLUME 8.7 fl (7.4-10.4); PLATELET 107 x1000/uL (130-400); RED BLOOD CELL COUNT 3.05 mill/uL (4.2-5.4); RED CELL DISTRIBUTION WIDTH 16.3 % (11.6-14.6)
[2019-03-24] MEDS: OMEPRAZOLE 20MG CAPSULE EXTENDED RELEASE PO SCH ×2 (06:20→21:43)
[2019-03-24 08:00] VITALS: BP 120/43
[2019-03-24] MEDS: ASPIRIN 81MG EC TABLET PO SCH (09:00)
[2019-03-24] MEDS: ASCORBIC ACID 250 MG TABLET PO SCH (09:55)
[2019-03-24] MEDS: DOCUSATE SODIUM 250MG CAPSULE PO SCH ×2 (09:55→17:40)
[2019-03-24] MEDS: ZINC SULFATE 220 MG ( 50 ) CAPSULE PO SCH (09:55)
[2019-03-24 10:00] LABS: PLATELET ESTIMATE NORMAL
[2019-03-24] MEDS ORDERED: BISACODYL 10MG SUPP PR NR (11:45)
[2019-03-24 12:00] VITALS: BP 143/50
[2019-03-24] MEDS ORDERED: DIATR MEGLU/DIATRIZOATE SOLN 30ML PO SCH (13:30)
[2019-03-24 16:00] VITALS: BP 134/34
[2019-03-24] MEDS: ENOXAPARIN 30MG/0.3ML SYR SUBCUT SCH (16:00)
[2019-03-24 20:00] VITALS: BP 185/57
[2019-03-24] MEDS: CLONIDINE 0.1MG TABLET PO PRN (20:15)
[2019-03-24] MEDS ORDERED: EPOETIN ALFA 10000UNITS/ML VIAL SUBCUT SCH (21:00)
[2019-03-24] MEDS: LACTULOSE 20G/30ML UDC PO SCH (21:43)
[2019-03-24] MEDS: SENNOSIDES 8.6MG TABLET PO SCH (21:43)
[2019-03-25] VITALS: BP_SYST 125; BP_SYST 185; BP_DIAS 57; BP_DIAS 67
[2019-03-25 04:00] VITALS: BP 138/50
[2019-03-25] MEDS: HYDROMORPHONE HCL/PF 2MG/ML CPJ IV PRN ×3 (06:09→23:48)
[2019-03-25 06:10] LABS: HIV SCREEN 4G Non Reactive (Non Reactive)
[2019-03-25] MEDS: OMEPRAZOLE 20MG CAPSULE EXTENDED RELEASE PO SCH ×2 (06:16→20:34)
[2019-03-25] MEDS: SODIUM CHLORIDE 0.9% INJ 3ML FLUSH IVF SCH ×3 (06:46→22:57)
[2019-03-25 07:20] LABS: HEMOGLOBIN. 9.8 g/dL (12.0-16.0); MEAN CORPUSCULAR HEMOGLOBIN 30.2 pg (28.0-32.0); MEAN CORPUSCULAR VOLUME 92.2 fL (81.0-99.0); MEAN PLATELET VOLUME 8.8 fl (7.4-10.4); PLATELET 126 x1000/uL (130-400); RED BLOOD CELL COUNT 3.26 mill/uL (4.2-5.4); RED CELL DISTRIBUTION WIDTH 16.1 % (11.6-14.6)
[2019-03-25 08:00] VITALS: BP 179/40
[2019-03-25 08:07] LABS: IMMUNOGLOBULIN A 318 mg/dL (87-352); IMMUNOGLOBULIN G 926 mg/dL (700-1600); IMMUNOGLOBULIN M 131 mg/dL (26-217)
[2019-03-25] MEDS: ASCORBIC ACID 250 MG TABLET PO SCH (09:01)
[2019-03-25] MEDS: ASPIRIN 81MG EC TABLET PO SCH (09:01)
[2019-03-25] MEDS: ZINC SULFATE 220 MG ( 50 ) CAPSULE PO SCH (09:05)
[2019-03-25] MEDS: DOCUSATE SODIUM 250MG CAPSULE PO SCH ×2 (09:05→17:36)
[2019-03-25 09:08] LABS: ALK PHOS TOTAL 517 IU/L (39-117)
[2019-03-25 10:56] LABS: PLATELET ESTIMATE NORMAL
[2019-03-25 12:00] VITALS: BP 123/57
[2019-03-25] MEDS: CLONIDINE 0.1MG TABLET PO PRN (15:40)
[2019-03-25 16:00] VITALS: BP 178/53
[2019-03-25] MEDS: ENOXAPARIN 30MG/0.3ML SYR SUBCUT SCH (16:07)
[2019-03-25 20:00] VITALS: BP 177/88
[2019-03-25] MEDS: SENNOSIDES 8.6MG TABLET PO SCH (20:34)
[2019-03-25] MEDS: LACTULOSE 20G/30ML UDC PO SCH (20:34)
[2019-03-25] MEDS ORDERED: HYDROCODONE/ACETAMINOPHEN 10/325MG TABLET PO PRN (23:00)
[2019-03-26] VITALS: BP 169/46
[2019-03-26] MEDS: CLONIDINE 0.1MG TABLET PO PRN ×2 (00:07→06:31)
[2019-03-26] MEDS: HYDROMORPHONE HCL/PF 2MG/ML CPJ IV PRN ×4 (03:25→22:07)
[2019-03-26 04:00] VITALS: BP 186/59
[2019-03-26] MEDS: OMEPRAZOLE 20MG CAPSULE EXTENDED RELEASE PO SCH ×2 (06:29→22:03)
[2019-03-26] MEDS: SODIUM CHLORIDE 0.9% INJ 3ML FLUSH IVF SCH ×3 (06:29→22:08)
[2019-03-26 08:00] VITALS: BP 111/57
[2019-03-26] MEDS: ASPIRIN 81MG EC TABLET PO SCH (08:10)
[2019-03-26] MEDS: DOCUSATE SODIUM 250MG CAPSULE PO SCH ×2 (08:10→16:09)
[2019-03-26] MEDS: ASCORBIC ACID 250 MG TABLET PO SCH (08:10)
[2019-03-26] MEDS: ZINC SULFATE 220 MG ( 50 ) CAPSULE PO SCH (08:10)
[2019-03-26 10:24] LABS: HEMATOCRIT. 31.1 % (36.0-48.0); HEMOGLOBIN. 10.1 g/dL (12.0-16.0); MEAN CORPUSCULAR HEMOGLOBIN 29.9 pg (28.0-32.0); MEAN CORPUSCULAR VOLUME 92.3 fL (81.0-99.0); MEAN PLATELET VOLUME 8.8 fl (7.4-10.4); PLATELET 130 x1000/uL (130-400); RED BLOOD CELL COUNT 3.37 mill/uL (4.2-5.4); RED CELL DISTRIBUTION WIDTH 16.1 % (11.6-14.6)
[2019-03-26 13:35] LABS: PLATELET ESTIMATE NORMAL
[2019-03-26 16:00] VITALS: BP 117/52
[2019-03-26] MEDS: ENOXAPARIN 30MG/0.3ML SYR SUBCUT SCH (16:09)
[2019-03-26 20:00] VITALS: BP 123/48
[2019-03-26] MEDS: SENNOSIDES 8.6MG TABLET PO SCH (22:03)
[2019-03-26] MEDS: LACTULOSE 20G/30ML UDC PO SCH (22:03)
[2019-03-27] VITALS: BP 134/51
[2019-03-27] MEDS: HYDROMORPHONE HCL/PF 2MG/ML CPJ IV PRN ×2 (02:41→06:29)
[2019-03-27 04:00] VITALS: BP 147/58
[2019-03-27] MEDS: OMEPRAZOLE 20MG CAPSULE EXTENDED RELEASE PO SCH (06:28)
[2019-03-27] MEDS: SODIUM CHLORIDE 0.9% INJ 3ML FLUSH IVF SCH ×2 (06:28→14:00)
[2019-03-27 08:00] VITALS: BP 132/75
[2019-03-27] MEDS: DOCUSATE SODIUM 250MG CAPSULE PO SCH (08:06)
[2019-03-27] MEDS: ASPIRIN 81MG EC TABLET PO SCH (08:06)
[2019-03-27] MEDS: ZINC SULFATE 220 MG ( 50 ) CAPSULE PO SCH (08:06)
[2019-03-27] MEDS: ASCORBIC ACID 250 MG TABLET PO SCH (08:06)
[2019-03-27 12:00] VITALS: BP 128/57
[2019-03-27 12:21] VITALS: BP 132/75
[2019-03-27 13:06] LABS: ALK PHOS BONE FRACTION 92 % (14-68); ALK PHOS INTESTINAL FRACTION 0 % (0-18); ALK PHOS LIVER FRACTION 8 % (18-85)
== END 2019-03-27 14:16 | disposition home health service (06) | DRG 551 ==
LOC: 6EST 15:20
PROVIDERS: ADMIT Internal Medicine; ATTEND Internal Medicine
PROC: 5A1D70Z Performance of Urinary Filtration, Intermittent, Less than 6 Hours Per Day (ICD-10-PCS; 2019-03-21)
PROC: 02HV33Z Insertion of Infusion Device into Superior Vena Cava, Percutaneous Approach (ICD-10-PCS; 2019-03-23)
PROC: B5181ZA Fluoroscopy of Superior Vena Cava using Low Osmolar Contrast, Guidance (ICD-10-PCS; 2019-03-23)
PROC: B548ZZA Ultrasonography of Superior Vena Cava, Guidance (ICD-10-PCS; 2019-03-23)
PROC: 5A1D70Z Performance of Urinary Filtration, Intermittent, Less than 6 Hours Per Day (ICD-10-PCS; 2019-03-24)
PROC: 5A1D70Z Performance of Urinary Filtration, Intermittent, Less than 6 Hours Per Day (ICD-10-PCS; 2019-03-25)
PROC: 5A1D70Z Performance of Urinary Filtration, Intermittent, Less than 6 Hours Per Day (ICD-10-PCS; principal; 2019-03-27)
DX: M48.02 Spinal stenosis, cervical region (principal); N18.6 End stage renal disease; E44.0 Moderate protein-calorie malnutrition; D61.818 Other pancytopenia; E87.1 Hypo-osmolality and hyponatremia; I12.0 Hypertensive chronic kidney disease with stage 5 chronic kidney disease or end stage renal disease; N25.81 Secondary hyperparathyroidism of renal origin; M54.12 Radiculopathy, cervical region; E11.22 Type 2 diabetes mellitus with diabetic chronic kidney disease; M25.512 Pain in left shoulder; M48.061 Spinal stenosis, lumbar region without neurogenic claudication; D69.6 Thrombocytopenia, unspecified; M81.0 Age-related osteoporosis without current pathological fracture; N25.0 Renal osteodystrophy; G89.29 Other chronic pain; K59.00 Constipation, unspecified; D63.8 Anemia in other chronic diseases classified elsewhere; Z86.711 Personal history of pulmonary embolism; Z86.718 Personal history of other venous thrombosis and embolism; Z99.2 Dependence on renal dialysis; Z98.84 Bariatric surgery status; Z90.49 Acquired absence of other specified parts of digestive tract; Z68.23 Body mass index [BMI] 23.0-23.9, adult
CPT/HCPCS: 36415; 36573; 72141; 74176; 76700; 80048; 80076; 82270; 82607; 82728; 82746; 82784; 82977; 83540; 83550; 84075; 84080; 85044; 86334; 87389; 97162; C1725; J0885; J1170; J1650; J2060; J3490; Q9963

== ENCOUNTER 2019-06-16 09:38 | Inpatient (IN) | payer MEDICARE, MEDICAID ==
[~2019-06-16] VITALS: Ht 160 cm; Wt 64.0 kg
[~2019-06-16 09:38] MED LIST changes: +OXYC-100 PO
[2019-06-16] MEDS ORDERED: MORPHINE SULFATE 4 MG/ML CPJ (NOT FOR IM USE) IV STA (13:10)
[2019-06-16] MEDS ORDERED: ONDANSETRON HCL 4MG/2ML INJ IV STA (13:10)
[2019-06-16 14:02] LABS: BASOPHILS % 0.8 % (0.0-2.0); EOSINOPHILS % 3.7 % (0.0-5.0); HEMATOCRIT. 27.2 % (36.0-48.0); HEMOGLOBIN. 9.2 g/dL (12.0-16.0); LYMPHOCYTES % 16.1 % (20.0-50.0); MEAN CORPUSCULAR VOLUME 88.8 fL (81.0-99.0); MEAN PLATELET VOLUME 8.5 fl (7.4-10.4); MONOCYTES % 5.4 % (2.0-8.0); PLATELET 181 x1000/uL (130-400); RED BLOOD CELL COUNT 3.06 mill/uL (4.2-5.4); RED CELL DISTRIBUTION WIDTH 16.9 % (11.6-14.6)
[2019-06-16 14:04] LABS: CHLORIDE 95 mEq/L (98-107)
[2019-06-16] MEDS ORDERED: FUROSEMIDE 40MG/4ML VIAL IVP ONE (15:45)
[2019-06-16] MEDS ORDERED: GUAIFENESIN 200MG/10ML SUGAR FREE UDC PO PRN (17:45)
[2019-06-16] MEDS ORDERED: IPRATROPIUM/ALBUTEROL 0.5-3(2.5)MG/3ML NEB NEB PRN (17:45)
[2019-06-16] MEDS ORDERED: CLONIDINE 0.1MG TABLET PO PRN (17:45)
[2019-06-16] MEDS ORDERED: ONDANSETRON HCL 4MG/2ML INJ IV PRN (17:45)
[2019-06-16] MEDS ORDERED: DOCUSATE SODIUM 100MG CAPSULE PO PRN (17:45)
[2019-06-16] MEDS ORDERED: LORAZEPAM 2MG/ML CPJ IV PRN (17:45)
[2019-06-16] MEDS ORDERED: ACETAMINOPHEN 325MG TABLET PO PRN (17:45)
[2019-06-16] MEDS ORDERED: MAGNESIUM/ALUMINUM HYDROXIDE/SIMETHICONE 30ML UDC PO PRN (17:45)
[2019-06-16] MEDS ORDERED: ENOXAPARIN 40MG/0.4ML SYR SUBCUT SCH (17:45)
[2019-06-16] MEDS ORDERED: NA PHOS,M-B/NA PHOS,DI-BA ENEMA 118ML PR PRN (17:45)
[2019-06-16] MEDS: HYDROMORPHONE HCL/PF 2MG/ML CPJ IV PRN (19:29)
[2019-06-16] MEDS: DIPHENHYDRAMINE 50MG/ML VIAL IV PRN (19:29)
[2019-06-16 23:45] VITALS: BP 138/43
[2019-06-17] VITALS: BP 138/43
[2019-06-17] MEDS: DIPHENHYDRAMINE 50MG/ML VIAL IV PRN ×2 (00:16→23:57)
[2019-06-17] MEDS: HYDROMORPHONE HCL/PF 2MG/ML CPJ IV PRN ×5 (00:17→20:37)
[2019-06-17 04:00] VITALS: BP 151/49
[2019-06-17 08:00] VITALS: BP 108/54
[2019-06-17] MEDS: ENOXAPARIN 30MG/0.3ML SYR SUBCUT SCH (09:22)
[2019-06-17 10:06] LABS: BASOPHILS % 1.6 % (0.0-2.0); EOSINOPHILS % 7.4 % (0.0-5.0); HEMATOCRIT. 27.5 % (36.0-48.0); HEMOGLOBIN. 9.2 g/dL (12.0-16.0); LYMPHOCYTES % 17.8 % (20.0-50.0); MEAN CORPUSCULAR VOLUME 89.4 fL (81.0-99.0); MEAN PLATELET VOLUME 8.2 fl (7.4-10.4); MONOCYTES % 6.5 % (2.0-8.0); NEUTROPHILS % 66.7 % (40.0-76.0); PLATELET 187 x1000/uL (130-400); RED BLOOD CELL COUNT 3.08 mill/uL (4.2-5.4); RED CELL DISTRIBUTION WIDTH 17.1 % (11.6-14.6)
[2019-06-17 10:15] LABS: CHLORIDE 95 mEq/L (98-107)
[2019-06-17 10:25] LABS: LDL CHOLESTEROL 129 mg/dL (5-100)
[2019-06-17 10:27] LABS: T4 FREE 0.83 ng/dL (0.76-1.46)
[2019-06-17 10:28] LABS: HDL CHOLESTEROL 80 mg/dL (40-59)
[2019-06-17] MEDS: LOSARTAN POTASSIUM 25 MG TABLET PO SCH (11:30)
[2019-06-17 12:00] VITALS: BP_SYST 128; BP_SYST 132; BP_DIAS 53; BP_DIAS 86
[2019-06-17] MEDS ORDERED: INFLUENZA VIRUS VACCINE(AFLURIA) 0.5ML SYR IM ONE (12:00)
[2019-06-17 16:00] VITALS: BP 172/69
[2019-06-17 16:47] LABS: PROTHROMBIN TIME 10.4 sec (9.6-11.0)
[2019-06-17 20:00] VITALS: BP 140/33
[2019-06-17] MEDS: ATORVASTATIN CALCIUM 20MG TABLET PO SCH (20:37)
[2019-06-18] VITALS: BP 148/39
[2019-06-18 04:00] VITALS: BP 130/59
[2019-06-18] MEDS: HYDROMORPHONE HCL/PF 2MG/ML CPJ IV PRN ×3 (04:05→15:36)
[2019-06-18] MEDS: ENOXAPARIN 30MG/0.3ML SYR SUBCUT SCH (07:09)
[2019-06-18 07:37] LABS: BASOPHILS % 1.7 % (0.0-2.0); EOSINOPHILS % 7.6 % (0.0-5.0); HEMATOCRIT. 26.7 % (36.0-48.0); HEMOGLOBIN. 9.2 g/dL (12.0-16.0); LYMPHOCYTES % 15.7 % (20.0-50.0); MEAN CORPUSCULAR HEMOGLOBIN 30.2 pg (28.0-32.0); MEAN CORPUSCULAR VOLUME 87.9 fL (81.0-99.0); MEAN PLATELET VOLUME 8.2 fl (7.4-10.4); MONOCYTES % 7.9 % (2.0-8.0); NEUTROPHILS % 67.1 % (40.0-76.0); PLATELET 164 x1000/uL (130-400); RED BLOOD CELL COUNT 3.03 mill/uL (4.2-5.4); RED CELL DISTRIBUTION WIDTH 17.1 % (11.6-14.6)
[2019-06-18 08:00] VITALS: BP 153/60
[2019-06-18] MEDS: LOSARTAN POTASSIUM 25 MG TABLET PO SCH (08:06)
[2019-06-18 12:00] VITALS: BP 148/31
[2019-06-18 16:00] VITALS: BP 165/35
[2019-06-18] MEDS: DIPHENHYDRAMINE 50MG/ML VIAL IV PRN (16:31)
[2019-06-18 20:00] VITALS: BP 127/52
[2019-06-18] MEDS: ATORVASTATIN CALCIUM 20MG TABLET PO SCH (21:00)
[2019-06-19] VITALS (10 sets, daily range): BP systolic 91–157; BP diastolic 27–52
[2019-06-19] MEDS: HYDROMORPHONE HCL/PF 2MG/ML CPJ IV PRN ×4 (02:00→23:19)
[2019-06-19 06:38] LABS: BASOPHILS % 1.3 % (0.0-2.0); EOSINOPHILS % 10.1 % (0.0-5.0); HEMOGLOBIN. 8.4 g/dL (12.0-16.0); LYMPHOCYTES % 21.5 % (20.0-50.0); MEAN CORPUSCULAR HEMOGLOBIN 30.1 pg (28.0-32.0); MEAN CORPUSCULAR VOLUME 89.4 fL (81.0-99.0); MEAN PLATELET VOLUME 8.3 fl (7.4-10.4); MONOCYTES % 11.7 % (2.0-8.0); NEUTROPHILS % 55.4 % (40.0-76.0); PLATELET 161 x1000/uL (130-400); RED CELL DISTRIBUTION WIDTH 16.9 % (11.6-14.6)
[2019-06-19] MEDS: LOSARTAN POTASSIUM 25 MG TABLET PO SCH (09:00)
[2019-06-19] MEDS: ENOXAPARIN 30MG/0.3ML SYR SUBCUT SCH (09:00)
[2019-06-19] MEDS ORDERED: DIPHENHYDRAMINE 50MG/ML VIAL IV NR (10:45)
[2019-06-19] MEDS: ATORVASTATIN CALCIUM 20MG TABLET PO SCH (21:49)
[2019-06-19] MEDS: DIPHENHYDRAMINE 50MG/ML VIAL IV PRN (21:59)
[2019-06-20] VITALS: BP 149/40
[2019-06-20] MEDS ORDERED: LIDOCAINE HCL 4% CREAM 76GM TUBE TP PRN (00:30)
[2019-06-20] MEDS: HYDROMORPHONE HCL/PF 2MG/ML CPJ IV PRN ×3 (01:41→14:29)
[2019-06-20 04:00] VITALS: BP 111/58
[2019-06-20 08:00] VITALS: BP 147/60
[2019-06-20] MEDS: LOSARTAN POTASSIUM 25 MG TABLET PO SCH (08:23)
[2019-06-20] MEDS: ENOXAPARIN 30MG/0.3ML SYR SUBCUT SCH (08:24)
[2019-06-20 11:32] LABS: BASOPHILS % 1.3 % (0.0-2.0); EOSINOPHILS % 7.5 % (0.0-5.0); HEMATOCRIT. 33.5 % (36.0-48.0); HEMOGLOBIN. 11.4 g/dL (12.0-16.0); LYMPHOCYTES % 17.6 % (20.0-50.0); MEAN CORPUSCULAR HEMOGLOBIN 29.7 pg (28.0-32.0); MEAN CORPUSCULAR VOLUME 87.2 fL (81.0-99.0); MEAN PLATELET VOLUME 7.9 fl (7.4-10.4); MONOCYTES % 9.8 % (2.0-8.0); NEUTROPHILS % 63.8 % (40.0-76.0); PLATELET 160 x1000/uL (130-400); RED BLOOD CELL COUNT 3.84 mill/uL (4.2-5.4); RED CELL DISTRIBUTION WIDTH 16.7 % (11.6-14.6)
[2019-06-20 12:00] VITALS: BP 109/55
[2019-06-20] MEDS ORDERED: EPINEPHRINE 1:1000 1 MG/ML AMP ONE ×2 (13:12→17:49)
[2019-06-20] MEDS ORDERED: KETOROLAC 30MG/ML VIAL ONE (13:12)
[2019-06-20] MEDS ORDERED: ROPIVACAINE HCL 10MG/ML 20 ML VIAL EPI ONE ×2 (13:13→15:51)
[2019-06-20] MEDS ORDERED: VANCOMYCIN HCL 1 GM/VIAL ONE (13:13)
[2019-06-20] MEDS ORDERED: TRANEXAMIC ACID 1,000 MG in SODIUM CHLORIDE 0.9% 100 ML IV SCH (13:15)
[2019-06-20] MEDS ORDERED: LIDOCAINE HCL 1% 20ML VIAL (Pyxis) INJ ONE (13:23)
[2019-06-20] MEDS ORDERED: TRANEXAMIC ACID 1,000 MG/10 ML IV SCH (13:30)
[2019-06-20] MEDS ORDERED: MORPHINE SULFATE/PF 1MG/ML 10ML AMP ONE (15:40)
[2019-06-20] MEDS ORDERED: NORMAL SALINE 0.9% 10 ML SYR ONE (15:52)
[2019-06-20] MEDS ORDERED: TRANEXAMIC ACID 1,000 MG in SODIUM CHLORIDE 0.9% 100 ML IV NR (16:00)
[2019-06-20 16:29] VITALS: BP 144/34
[2019-06-20] MEDS ORDERED: DEXTROSE 50% WATER 50ML SYRINGE IV ONE (16:43)
[2019-06-20] MEDS ORDERED: CALCIUM CHLORIDE 1GM/10ML SYR IV ONE (17:09)
[2019-06-20] MEDS ORDERED: LIDOCAINE HCL/PF 1% 10 MG/ML 5ML VIAL ONE (17:11)
[2019-06-20] MEDS ORDERED: NEOSTIGMINE METHYLSULFATE 1MG/ML 10 ML VIAL ONE (17:11)
[2019-06-20] MEDS ORDERED: ROCURONIUM BROMIDE 10MG/ML VIAL 5ML IV ONE (17:11)
[2019-06-20] MEDS ORDERED: GLYCOPYRROLATE 0.2 MG/ML 2ML VIAL ONE (17:11)
[2019-06-20] MEDS ORDERED: SODIUM CHLORIDE 0.9% 10ML VIAL ONE (17:11)
[2019-06-20] MEDS ORDERED: PROPOFOL 200MG/20ML VIAL IV ONE (17:11)
[2019-06-20] MEDS ORDERED: FENTANYL CITRATE/PF 50MCG/ML 2ML VIAL ONE (17:11)
[2019-06-20] MEDS ORDERED: SUCCINYLCHOLINE CHLORIDE 200MG/10ML IV ONE (17:11)
[2019-06-20] MEDS ORDERED: MIDAZOLAM HCL 2 MG/2 ML VIAL ONE (17:11)
[2019-06-20] MEDS ORDERED: CEFAZOLIN SODIUM 1000MG/VIAL ONE (17:11)
[2019-06-20] MEDS ORDERED: EPHEDRINE SULFATE 50MG/ML VIAL ONE (17:12)
[2019-06-20] MEDS ORDERED: ETOMIDATE 2MG/ML 10ML VIAL IV ONE (17:12)
[2019-06-20] MEDS ORDERED: PHENYLEPHRINE HCL 10 MG/ML 1ML (IV VIAL) IV ONE (17:12)
[2019-06-20] MEDS ORDERED: ONDANSETRON HCL 4MG/2ML INJ ONE (17:12)
[2019-06-20] MEDS ORDERED: METOCLOPRAMIDE HCL 10MG/2ML VIAL ONE (17:12)
[2019-06-20 17:47] LABS: BASOPHILS % 1.1 % (0.0-2.0); EOSINOPHILS % 7.6 % (0.0-5.0); HEMOGLOBIN. 9.9 g/dL (12.0-16.0); LYMPHOCYTES % 18.3 % (20.0-50.0); MEAN CORPUSCULAR HEMOGLOBIN 29.8 pg (28.0-32.0); MEAN CORPUSCULAR VOLUME 87.1 fL (81.0-99.0); MONOCYTES % 10.3 % (2.0-8.0); NEUTROPHILS % 62.7 % (40.0-76.0); PLATELET 157 x1000/uL (130-400); RED BLOOD CELL COUNT 3.33 mill/uL (4.2-5.4); RED CELL DISTRIBUTION WIDTH 16.7 % (11.6-14.6)
[2019-06-20] MEDS ORDERED: SODIUM CHLORIDE 0.9% 1,000 ML IV ONE (20:01)
[2019-06-20] MEDS ORDERED: MORPHINE SULFATE 2 MG/ML CPJ (NOT FOR IM USE) IV PRN (20:15)
[2019-06-20] MEDS ORDERED: ONDANSETRON HCL 4MG/2ML INJ IV PRN (20:15)
[2019-06-20] MEDS ORDERED: HYDROMORPHONE HCL/PF 2MG/ML CPJ IV PRN (20:15)
[2019-06-20] MEDS: CEFAZOLIN 1000MG PREMIX 50 ML IV SCH (21:52)
[2019-06-20] MEDS: ATORVASTATIN CALCIUM 20MG TABLET PO SCH (21:52)
[2019-06-20 22:00] VITALS: BP 122/32
[2019-06-20] MEDS ORDERED: CEFAZOLIN SODIUM 1000MG/VIAL IV SCH (22:00)
[2019-06-21] VITALS: BP 135/27
[2019-06-21 04:00] VITALS: BP 130/25
[2019-06-21] MEDS: HYDROCODONE/ACETAMINOPHEN 5/325MG TABLET PO PRN ×2 (04:05→22:57)
[2019-06-21] MEDS: CEFAZOLIN 1000MG PREMIX 50 ML IV SCH ×2 (05:14→16:19)
[2019-06-21 07:04] LABS: EOSINOPHILS % 6.7 % (0.0-5.0); HEMATOCRIT. 24.8 % (36.0-48.0); HEMOGLOBIN. 8.4 g/dL (12.0-16.0); LYMPHOCYTES % 11.7 % (20.0-50.0); MEAN CORPUSCULAR HEMOGLOBIN 29.8 pg (28.0-32.0); MEAN CORPUSCULAR VOLUME 88.2 fL (81.0-99.0); MEAN PLATELET VOLUME 8.1 fl (7.4-10.4); MONOCYTES % 9.4 % (2.0-8.0); NEUTROPHILS % 71.2 % (40.0-76.0); PLATELET 128 x1000/uL (130-400); RED BLOOD CELL COUNT 2.81 mill/uL (4.2-5.4); RED CELL DISTRIBUTION WIDTH 16.4 % (11.6-14.6)
[2019-06-21 08:00] VITALS: BP 141/29
[2019-06-21] MEDS: LOSARTAN POTASSIUM 25 MG TABLET PO SCH (09:16)
[2019-06-21] MEDS: HYDROMORPHONE HCL/PF 2MG/ML CPJ IV PRN ×2 (09:19→14:32)
[2019-06-21] MEDS: AMLODIPINE 2.5MG TABLET PO SCH (09:22)
[2019-06-21 12:00] VITALS: BP 108/24
[2019-06-21 16:00] VITALS: BP 91/40
[2019-06-21 20:00] VITALS: BP 108/23
[2019-06-21] MEDS: ATORVASTATIN CALCIUM 20MG TABLET PO SCH (22:55)
[2019-06-22] VITALS: BP 109/20
[2019-06-22] MEDS: DIPHENHYDRAMINE 50MG/ML VIAL IV PRN (00:27)
[2019-06-22 04:00] VITALS: BP 98/62
[2019-06-22 06:59] LABS: HEMATOCRIT. 27.6 % (36.0-48.0); HEMOGLOBIN. 9.4 g/dL (12.0-16.0); MEAN CORPUSCULAR HEMOGLOBIN 29.8 pg (28.0-32.0); MEAN CORPUSCULAR VOLUME 87.5 fL (81.0-99.0); RED BLOOD CELL COUNT 3.15 mill/uL (4.2-5.4); RED CELL DISTRIBUTION WIDTH 16.2 % (11.6-14.6)
[2019-06-22 08:00] VITALS: BP 112/62
[2019-06-22] MEDS ORDERED: TRAMADOL 50MG TABLET PO PRN (08:15)
[2019-06-22 08:56] LABS: PLATELET ESTIMATE SLIGHTLY DECREASED
[2019-06-22] MEDS: AMLODIPINE 2.5MG TABLET PO SCH (09:00)
[2019-06-22] MEDS: LOSARTAN POTASSIUM 25 MG TABLET PO SCH (09:29)
[2019-06-22] MEDS: HYDROMORPHONE HCL/PF 2MG/ML CPJ IV PRN ×2 (09:30→15:35)
[2019-06-22 12:00] VITALS: BP 117/68
[2019-06-22] MEDS ORDERED: ZOLPIDEM TARTRATE 5MG TABLET PO PRN (12:00)
[2019-06-22 16:00] VITALS: BP 156/62
[2019-06-22 20:00] VITALS: BP 127/39
[2019-06-22] MEDS: ATORVASTATIN CALCIUM 20MG TABLET PO SCH (20:18)
[2019-06-23] VITALS (7 sets, daily range): BP systolic 104–144; BP diastolic 30–52
[2019-06-23] MEDS: HYDROMORPHONE HCL/PF 2MG/ML CPJ IV PRN ×3 (01:19→17:10)
[2019-06-23 07:41] LABS: BASOPHILS % 0.5 % (0.0-2.0); EOSINOPHILS % 12.7 % (0.0-5.0); HEMATOCRIT. 23.1 % (36.0-48.0); HEMOGLOBIN. 7.9 g/dL (12.0-16.0); LYMPHOCYTES % 13.4 % (20.0-50.0); MEAN CORPUSCULAR VOLUME 88.2 fL (81.0-99.0); MONOCYTES % 9.8 % (2.0-8.0); NEUTROPHILS % 63.6 % (40.0-76.0); PLATELET 130 x1000/uL (130-400); RED BLOOD CELL COUNT 2.62 mill/uL (4.2-5.4); RED CELL DISTRIBUTION WIDTH 16.7 % (11.6-14.6)
[2019-06-23] MEDS: LOSARTAN POTASSIUM 25 MG TABLET PO SCH (09:42)
[2019-06-23] MEDS: AMLODIPINE 2.5MG TABLET PO SCH (09:42)
== END 2019-06-23 20:47 | DRG 981 ==
LOC: ER 09:38 → 7WST 15:26 → EDBEDREQTM 15:53 → EDBEDREQ 15:53 → ENRESERV 22:35
PROVIDERS: ADMIT Internal Medicine; ATTEND Internal Medicine
PROC: 5A1D70Z Performance of Urinary Filtration, Intermittent, Less than 6 Hours Per Day (ICD-10-PCS; 2019-06-17)
PROC: 5A1D70Z Performance of Urinary Filtration, Intermittent, Less than 6 Hours Per Day (ICD-10-PCS; 2019-06-19)
PROC: 0SRR0JA Replacement of Right Hip Joint, Femoral Surface with Synthetic Substitute, Uncemented, Open Approach (ICD-10-PCS; principal; 2019-06-20)
PROC: 02HV33Z Insertion of Infusion Device into Superior Vena Cava, Percutaneous Approach (ICD-10-PCS; 2019-06-20)
PROC: B548ZZA Ultrasonography of Superior Vena Cava, Guidance (ICD-10-PCS; 2019-06-20)
PROC: 5A1D70Z Performance of Urinary Filtration, Intermittent, Less than 6 Hours Per Day (ICD-10-PCS; 2019-06-21)
DX: I21.3 ST elevation (STEMI) myocardial infarction of unspecified site (principal); S72.031A Displaced midcervical fracture of right femur, initial encounter for closed fracture; N18.6 End stage renal disease; I13.2 Hypertensive heart and chronic kidney disease with heart failure and with stage 5 chronic kidney disease, or end stage renal disease; E46 Unspecified protein-calorie malnutrition; E87.1 Hypo-osmolality and hyponatremia; D64.9 Anemia, unspecified; E78.5 Hyperlipidemia, unspecified; E11.22 Type 2 diabetes mellitus with diabetic chronic kidney disease; G47.00 Insomnia, unspecified; I50.9 Heart failure, unspecified; G90.8 Other disorders of autonomic nervous system; W18.39XA Other fall on same level, initial encounter; M48.00 Spinal stenosis, site unspecified; Z86.73 Personal history of transient ischemic attack (TIA), and cerebral infarction without residual deficits; Z74.01 Bed confinement status; Z99.2 Dependence on renal dialysis; Z68.25 Body mass index [BMI] 25.0-25.9, adult; Z79.899 Other long term (current) drug therapy; Z99.3 Dependence on wheelchair; Z87.891 Personal history of nicotine dependence; Y93.89 Activity, other specified; Y92.89 Other specified places as the place of occurrence of the external cause; Y99.8 Other external cause status
CPT/HCPCS: 36415; 71045; 72192; 73501; 73522; 73560; 76937; 80048; 80053; 80061; 82962; 83735; 83880; 84439; 84443; 84484; 85025; 86850; 86900; 86920; 88305; 88311; 93005; 93306; 96374; 96375; 97162; 97530; 99285; C1725; C1776; C1893; J0330; J0690; J1170; J1200; J1650; J1885; J2060; J2250; J2270; J2274; J2370; J2405; J2704; J2710; J2765; J2795; J3010; J3370; J3490; J7030; J7050; P9016

== ENCOUNTER 2019-07-02 17:21 | Emergency (ER) | payer MEDICARE, MEDICAID ==
[~2019-07-02] VITALS: Ht 160 cm; Wt 60.0 kg
[2019-07-02 20:52] LABS: BASOPHILS % 3.4 % (0.0-2.0); EOSINOPHILS % 12.5 % (0.0-5.0); HEMATOCRIT. 22.7 % (36.0-48.0); HEMOGLOBIN. 7.4 g/dL (12.0-16.0); LYMPHOCYTES % 14.7 % (20.0-50.0); MEAN CORPUSCULAR HEMOGLOBIN 29.9 pg (28.0-32.0); MEAN CORPUSCULAR VOLUME 92.1 fL (81.0-99.0); MEAN PLATELET VOLUME 7.8 fl (7.4-10.4); MONOCYTES % 8.5 % (2.0-8.0); NEUTROPHILS % 60.9 % (40.0-76.0); PLATELET 203 x1000/uL (130-400); RED BLOOD CELL COUNT 2.46 mill/uL (4.2-5.4); RED CELL DISTRIBUTION WIDTH 17.1 % (11.6-14.6)
[2019-07-02 20:55] LABS: CHLORIDE 102 mEq/L (98-107)
[2019-07-02 20:59] LABS: PROTHROMBIN TIME 10.7 sec (9.6-11.0)
[2019-07-02 21:02] LABS: TOTAL IRON BINDING CAPACITY 113 ug/dL (250-450)
[2019-07-02 23:48] VITALS: BP 115/57
== END 2019-07-02 23:57 | disposition home or self-care (01) ==
LOC: ER 17:21
DX: D63.1 Anemia in chronic kidney disease (principal); I12.0 Hypertensive chronic kidney disease with stage 5 chronic kidney disease or end stage renal disease; N18.6 End stage renal disease; R94.39 Abnormal result of other cardiovascular function study; Z99.2 Dependence on renal dialysis; Z98.890 Other specified postprocedural states; Z96.649 Presence of unspecified artificial hip joint
CPT/HCPCS: 36415; 71045; 80053; 83540; 83550; 83880; 84484; 85025; 85044; 86850; 86900; 86920; 93005; 99284

== ENCOUNTER 2019-07-07 20:23 | Inpatient (IN) | payer MEDICARE, MEDICAID ==
[~2019-07-07] VITALS: Ht 160 cm; Wt 59.0 kg
[2019-07-07 22:52] LABS: BASOPHILS % 1.2 % (0.0-2.0); EOSINOPHILS % 7.9 % (0.0-5.0); HEMATOCRIT. 26.1 % (36.0-48.0); HEMOGLOBIN. 8.5 g/dL (12.0-16.0); MEAN CORPUSCULAR VOLUME 95.1 fL (81.0-99.0); MEAN PLATELET VOLUME 7.4 fl (7.4-10.4); MONOCYTES % 5.9 % (2.0-8.0); PLATELET 242 x1000/uL (130-400); RED BLOOD CELL COUNT 2.74 mill/uL (4.2-5.4); RED CELL DISTRIBUTION WIDTH 20.7 % (11.6-14.6)
[2019-07-07 22:58] LABS: CHLORIDE 100 mEq/L (98-107)
[2019-07-07 23:00] LABS: PROTHROMBIN TIME 10.4 sec (9.6-11.0)
[2019-07-08] MEDS ORDERED: SODIUM POLYSTYRENE SULFONATE 15 G/60 ML BOT PO ONE
[2019-07-08] MEDS ORDERED: ALBUTEROL (0.083%) 2.5MG/3ML NEB HHN ONE
[2019-07-08] MEDS ORDERED: IPRATROPIUM/ALBUTEROL 0.5-3(2.5)MG/3ML NEB NEB PRN (06:45)
[2019-07-08] MEDS ORDERED: LORAZEPAM 2MG/ML CPJ IV PRN (06:45)
[2019-07-08] MEDS ORDERED: GUAIFENESIN 200MG/10ML SUGAR FREE UDC PO PRN (06:45)
[2019-07-08] MEDS ORDERED: ACETAMINOPHEN 325MG TABLET PO PRN (06:45)
[2019-07-08] MEDS ORDERED: NA PHOS,M-B/NA PHOS,DI-BA ENEMA 118ML PR PRN (06:45)
[2019-07-08] MEDS ORDERED: DOCUSATE SODIUM 100MG CAPSULE PO PRN (06:45)
[2019-07-08] MEDS ORDERED: CLONIDINE 0.1MG TABLET PO PRN (06:45)
[2019-07-08] MEDS ORDERED: MAGNESIUM/ALUMINUM HYDROXIDE/SIMETHICONE 30ML UDC PO PRN (06:45)
[2019-07-08] MEDS ORDERED: MORPHINE SULFATE 2 MG/ML CPJ (NOT FOR IM USE) IV PRN (06:45)
[2019-07-08] MEDS ORDERED: DIPHENHYDRAMINE 50MG/ML VIAL IV PRN (06:45)
[2019-07-08] MEDS ORDERED: ONDANSETRON HCL 4MG/2ML INJ IV PRN (06:45)
[2019-07-08 12:30] VITALS: BP 154/33
[2019-07-08 16:00] VITALS: BP 115/25
[2019-07-08] MEDS: HYDROMORPHONE HCL/PF 2MG/ML CPJ IV PRN ×2 (18:24→18:59)
[2019-07-08] MEDS: HYDROCODONE/ACETAMINOPHEN 5/325MG TABLET PO PRN ×2 (19:01→23:17)
[2019-07-08 20:00] VITALS: BP 112/23
[2019-07-08] MEDS: EPOETIN ALFA 10000UNITS/ML VIAL SUBCUT SCH (22:45)
[2019-07-09] VITALS: BP 107/28
[2019-07-09] MEDS: HYDROMORPHONE HCL/PF 2MG/ML CPJ IV PRN ×3 (03:42→21:25)
[2019-07-09 04:00] VITALS: BP 90/24
[2019-07-09 06:33] LABS: BASOPHILS % 1.4 % (0.0-2.0); EOSINOPHILS % 9.3 % (0.0-5.0); HEMATOCRIT. 23.1 % (36.0-48.0); HEMOGLOBIN. 7.5 g/dL (12.0-16.0); MEAN CORPUSCULAR HEMOGLOBIN 30.8 pg (28.0-32.0); MEAN CORPUSCULAR VOLUME 94.5 fL (81.0-99.0); MEAN PLATELET VOLUME 7.8 fl (7.4-10.4); MONOCYTES % 7.4 % (2.0-8.0); NEUTROPHILS % 69.9 % (40.0-76.0); PLATELET 199 x1000/uL (130-400); RED BLOOD CELL COUNT 2.44 mill/uL (4.2-5.4); RED CELL DISTRIBUTION WIDTH 19.9 % (11.6-14.6)
[2019-07-09 06:58] LABS: CHLORIDE 100 mEq/L (98-107)
[2019-07-09 07:27] LABS: T4 FREE 0.77 ng/dL (0.76-1.46)
[2019-07-09 07:28] LABS: HDL CHOLESTEROL 82 mg/dL (40-59)
[2019-07-09 07:32] LABS: LDL CHOLESTEROL 83 mg/dL (5-100)
[2019-07-09 08:00] VITALS: BP 105/25
[2019-07-09 12:00] VITALS: BP 124/30
[2019-07-09 16:00] VITALS: BP 118/29
[2019-07-09 20:00] VITALS: BP 119/59
[2019-07-10] VITALS (7 sets, daily range): BP systolic 102–142; BP diastolic 25–72
[2019-07-10] MEDS: HYDROMORPHONE HCL/PF 2MG/ML CPJ IV PRN ×5 (02:43→22:03)
[2019-07-10 06:53] LABS: BASOPHILS % 1.5 % (0.0-2.0); EOSINOPHILS % 11.6 % (0.0-5.0); HEMOGLOBIN. 8.9 g/dL (12.0-16.0); LYMPHOCYTES % 16.7 % (20.0-50.0); MEAN CORPUSCULAR HEMOGLOBIN 30.5 pg (28.0-32.0); MEAN CORPUSCULAR VOLUME 95.5 fL (81.0-99.0); MEAN PLATELET VOLUME 7.7 fl (7.4-10.4); MONOCYTES % 7.2 % (2.0-8.0); PLATELET 215 x1000/uL (130-400); RED BLOOD CELL COUNT 2.93 mill/uL (4.2-5.4); RED CELL DISTRIBUTION WIDTH 20.6 % (11.6-14.6)
[2019-07-10] MEDS: EPOETIN ALFA 10000UNITS/ML VIAL SUBCUT SCH (22:03)
[2019-07-11] VITALS: BP 119/52
[2019-07-11] MEDS: HYDROMORPHONE HCL/PF 2MG/ML CPJ IV PRN (02:17)
[2019-07-11 04:00] VITALS: BP 122/53
== END 2019-07-11 11:50 | DRG 640 ==
LOC: ER 20:23 → 7WST 23:51 → EDBEDREQ 23:53 → EDBEDREQTM 23:53 → ENRESERV 07-08 11:23
PROVIDERS: ADMIT Internal Medicine; ATTEND Internal Medicine
PROC: 5A1D70Z Performance of Urinary Filtration, Intermittent, Less than 6 Hours Per Day (ICD-10-PCS; 2019-07-08)
PROC: 5A1D70Z Performance of Urinary Filtration, Intermittent, Less than 6 Hours Per Day (ICD-10-PCS; principal; 2019-07-10)
DX: E87.5 Hyperkalemia (principal); N18.6 End stage renal disease; E43 Unspecified severe protein-calorie malnutrition; I13.2 Hypertensive heart and chronic kidney disease with heart failure and with stage 5 chronic kidney disease, or end stage renal disease; D64.9 Anemia, unspecified; I25.10 Atherosclerotic heart disease of native coronary artery without angina pectoris; E11.22 Type 2 diabetes mellitus with diabetic chronic kidney disease; Z96.649 Presence of unspecified artificial hip joint; I50.9 Heart failure, unspecified; Z86.73 Personal history of transient ischemic attack (TIA), and cerebral infarction without residual deficits; Z99.2 Dependence on renal dialysis; Z87.81 Personal history of (healed) traumatic fracture; Z98.891 History of uterine scar from previous surgery; Z79.899 Other long term (current) drug therapy; Z68.23 Body mass index [BMI] 23.0-23.9, adult
CPT/HCPCS: 36415; 71045; 80048; 80053; 80061; 84439; 84443; 84484; 85025; 86850; 86900; 93005; 96372; 96374; 99285; C1893; J0885; J1170; J1200; J2270

== ENCOUNTER 2019-09-14 18:55 | Inpatient (IN) | payer MEDICARE, MEDICAID ==
[~2019-09-14] VITALS: Ht 162.6 cm; Wt 69.0 kg
[2019-09-14] MEDS ORDERED: MORPHINE SULFATE 4 MG/ML CPJ (NOT FOR IM USE) IV STA (19:37)
[2019-09-14] MEDS ORDERED: ONDANSETRON HCL 4MG/2ML INJ IV STA (19:37)
[2019-09-14 20:10] LABS: BASOPHILS % 1.7 % (0.0-2.0); CHLORIDE 95 mEq/L (98-107); EOSINOPHILS % 14.4 % (0.0-5.0); HEMATOCRIT. 40.4 % (36.0-48.0); LYMPHOCYTES % 20.1 % (20.0-50.0); MEAN CORPUSCULAR HEMOGLOBIN 28.3 pg (28.0-32.0); MEAN CORPUSCULAR VOLUME 88.1 fL (81.0-99.0); MEAN PLATELET VOLUME 7.9 fl (7.4-10.4); MONOCYTES % 7.8 % (2.0-8.0); PLATELET 201 x1000/uL (130-400); RED BLOOD CELL COUNT 4.59 mill/uL (4.2-5.4); RED CELL DISTRIBUTION WIDTH 18.7 % (11.6-14.6)
[2019-09-14] MEDS ORDERED: HYDROCODONE/ACETAMINOPHEN 10/325MG TABLET PO PRN (22:15)
[2019-09-14] MEDS ORDERED: IPRATROPIUM/ALBUTEROL 0.5-3(2.5)MG/3ML NEB NEB PRN (22:15)
[2019-09-14] MEDS ORDERED: DOCUSATE SODIUM 100MG CAPSULE PO PRN (22:15)
[2019-09-14] MEDS ORDERED: GUAIFENESIN 200MG/10ML SUGAR FREE UDC PO PRN (22:15)
[2019-09-14] MEDS ORDERED: ONDANSETRON HCL 4MG/2ML INJ IV PRN (22:15)
[2019-09-14] MEDS ORDERED: MAGNESIUM/ALUMINUM HYDROXIDE/SIMETHICONE 30ML UDC PO PRN (22:15)
[2019-09-14] MEDS ORDERED: LORAZEPAM 2MG/ML CPJ IV PRN (22:15)
[2019-09-14] MEDS ORDERED: CLONIDINE 0.1MG TABLET PO PRN (22:15)
[2019-09-14] MEDS ORDERED: ACETAMINOPHEN 325MG TABLET PO PRN (22:15)
[2019-09-14] MEDS ORDERED: NA PHOS,M-B/NA PHOS,DI-BA ENEMA 118ML PR PRN (22:15)
[2019-09-15 00:05] VITALS: BP 157/43
[2019-09-15] MEDS: DIPHENHYDRAMINE 50MG/ML VIAL IV PRN ×2 (00:49→14:11)
[2019-09-15 04:00] VITALS: BP 144/58
[2019-09-15] MEDS: MORPHINE SULFATE 2 MG/ML CPJ (NOT FOR IM USE) IV PRN ×3 (05:50→20:01)
[2019-09-15 08:00] VITALS: BP 158/41
[2019-09-15] MEDS: ASPIRIN 81MG EC TABLET PO SCH (09:43)
[2019-09-15] MEDS: ENOXAPARIN 30MG/0.3ML SYR SUBCUT SCH (09:43)
[2019-09-15 09:49] LABS: BASOPHILS % 1.4 % (0.0-2.0); EOSINOPHILS % 16.6 % (0.0-5.0); HEMATOCRIT. 39.2 % (36.0-48.0); HEMOGLOBIN. 12.5 g/dL (12.0-16.0); LYMPHOCYTES % 22.4 % (20.0-50.0); MEAN CORPUSCULAR HEMOGLOBIN 27.8 pg (28.0-32.0); MONOCYTES % 9.3 % (2.0-8.0); NEUTROPHILS % 50.3 % (40.0-76.0); PLATELET 155 x1000/uL (130-400); RED BLOOD CELL COUNT 4.51 mill/uL (4.2-5.4); RED CELL DISTRIBUTION WIDTH 18.5 % (11.6-14.6)
[2019-09-15 09:58] LABS: CHLORIDE 102 mEq/L (98-107)
[2019-09-15 10:05] LABS: LDL CHOLESTEROL 124 mg/dL (5-100)
[2019-09-15 10:07] LABS: HDL CHOLESTEROL 82 mg/dL (40-59)
[2019-09-15 11:59] LABS: T4 FREE 0.89 ng/dL (0.76-1.46)
[2019-09-15 12:00] VITALS: BP 150/40
[2019-09-15 15:42] LABS: CREATINE KINASE MB FRACTION 1.9 ng/mL (0.5-3.6)
[2019-09-15 16:00] VITALS: BP 146/41
[2019-09-15 20:00] VITALS: BP 157/97
[2019-09-16] VITALS: BP 159/44
[2019-09-16] MEDS: MORPHINE SULFATE 2 MG/ML CPJ (NOT FOR IM USE) IV PRN ×3 (03:57→20:36)
[2019-09-16 04:00] VITALS: BP 139/70
[2019-09-16 07:14] LABS: HEMATOCRIT. 37.5 % (36.0-48.0); HEMOGLOBIN. 12.1 g/dL (12.0-16.0); MEAN CORPUSCULAR HEMOGLOBIN 28.1 pg (28.0-32.0); MEAN PLATELET VOLUME 7.4 fl (7.4-10.4); PLATELET 148 x1000/uL (130-400); RED BLOOD CELL COUNT 4.31 mill/uL (4.2-5.4); RED CELL DISTRIBUTION WIDTH 18.5 % (11.6-14.6)
[2019-09-16 07:24] LABS: CREATINE KINASE MB FRACTION 1.8 ng/mL (0.5-3.6)
[2019-09-16] MEDS: ASPIRIN 81MG EC TABLET PO SCH (10:39)
[2019-09-16] MEDS: ENOXAPARIN 30MG/0.3ML SYR SUBCUT SCH (10:39)
[2019-09-16 12:33] LABS: PLATELET ESTIMATE NORMAL
[2019-09-16 16:00] VITALS: BP 128/48
[2019-09-16] MEDS: DIPHENHYDRAMINE 50MG/ML VIAL IV PRN (16:15)
[2019-09-16 20:00] VITALS: BP 125/75
[2019-09-16] MEDS ORDERED: ATORVASTATIN CALCIUM 20MG TABLET PO SCH (21:00)
[2019-09-17] VITALS: BP 146/48
[2019-09-17] MEDS: DIPHENHYDRAMINE 50MG/ML VIAL IV PRN (01:37)
[2019-09-17] MEDS: MORPHINE SULFATE 2 MG/ML CPJ (NOT FOR IM USE) IV PRN ×2 (01:38→09:37)
[2019-09-17 04:00] VITALS: BP 152/46
[2019-09-17 07:05] LABS: BASOPHILS % 1.3 % (0.0-2.0); EOSINOPHILS % 13.8 % (0.0-5.0); HEMATOCRIT. 41.6 % (36.0-48.0); LYMPHOCYTES % 24.3 % (20.0-50.0); MEAN CORPUSCULAR HEMOGLOBIN 27.6 pg (28.0-32.0); MEAN CORPUSCULAR VOLUME 88.1 fL (81.0-99.0); MEAN PLATELET VOLUME 7.6 fl (7.4-10.4); MONOCYTES % 8.9 % (2.0-8.0); NEUTROPHILS % 51.7 % (40.0-76.0); PLATELET 118 x1000/uL (130-400); RED BLOOD CELL COUNT 4.73 mill/uL (4.2-5.4); RED CELL DISTRIBUTION WIDTH 18.8 % (11.6-14.6)
[2019-09-17 08:00] VITALS: BP 171/52
[2019-09-17] MEDS: ENOXAPARIN 30MG/0.3ML SYR SUBCUT SCH (09:35)
[2019-09-17] MEDS: ASPIRIN 81MG EC TABLET PO SCH (09:35)
[2019-09-17 12:00] VITALS: BP 136/38
[2019-09-17 13:53] VITALS: BP 136/38
== END 2019-09-17 15:30 | disposition home health service (06) | DRG 535 ==
LOC: ER 18:55 → 7WST 22:25 → ENRESERV 23:05 → 7WST 09-15 00:42 → 6WST 09-17 12:33
PROVIDERS: ADMIT Internal Medicine; ATTEND Internal Medicine
PROC: 5A1D70Z Performance of Urinary Filtration, Intermittent, Less than 6 Hours Per Day (ICD-10-PCS; principal; 2019-09-14)
PROC: 5A1D70Z Performance of Urinary Filtration, Intermittent, Less than 6 Hours Per Day (ICD-10-PCS; 2019-09-16)
DX: S32.511A Fracture of superior rim of right pubis, initial encounter for closed fracture (principal); N18.6 End stage renal disease; E43 Unspecified severe protein-calorie malnutrition; I13.2 Hypertensive heart and chronic kidney disease with heart failure and with stage 5 chronic kidney disease, or end stage renal disease; E87.1 Hypo-osmolality and hyponatremia; E87.5 Hyperkalemia; I50.9 Heart failure, unspecified; E78.5 Hyperlipidemia, unspecified; E11.22 Type 2 diabetes mellitus with diabetic chronic kidney disease; M85.80 Other specified disorders of bone density and structure, unspecified site; I25.10 Atherosclerotic heart disease of native coronary artery without angina pectoris; M48.02 Spinal stenosis, cervical region; Z96.641 Presence of right artificial hip joint; G89.29 Other chronic pain; E83.39 Other disorders of phosphorus metabolism; D64.9 Anemia, unspecified; Z99.2 Dependence on renal dialysis; Z79.891 Long term (current) use of opiate analgesic; Z79.899 Other long term (current) drug therapy; Z68.26 Body mass index [BMI] 26.0-26.9, adult; Y93.89 Activity, other specified; Y92.89 Other specified places as the place of occurrence of the external cause; Y99.8 Other external cause status
CPT/HCPCS: 36415; 71045; 72170; 78580; 80048; 80053; 80061; 82550; 82553; 83036; 83880; 84439; 84443; 84484; 85025; 85379; 93005; 93306; 93970; 97162; 99285; J1200; J1650; J2270; J2405